=== PATIENT | female | born 1980 | race Caucasian/White ===

== ENCOUNTER 2016-12-02 01:35 | Emergency (ER) | payer OTHER ==
--- NOTE | ~2016-12-02 | CR72 ---
[facility] A Service of [facility] & [facility] / [facility] RADIOLOGY TEXT RESULTS PATIENT: SHIREEN ÁLVAREZ LOCATION: [facility] : 81 UNIT #: [id number] AGE: [address]: Tierra Baez MD SEX: F ORDER DR: [id number] [facility] [address] [place], [place] [address] [id number] E MR#: [id number] Acc #: [id number] NAME: SHIREEN ÁLVAREZ : 1980 SEX: F STUDY DATE/TIME: 12/02/2016 00:45 UNIT: [facility] ROOM: STUDY DESCRIPTION: CR Chest Single View Portable Attending Physician: Tierra Baez M.D. Ordering Physician: Tierra Baez M.D. Primary Care Physician: Sam Lopez M.D. MEDICAL IMAGING REPORT This report is preliminary unless electronic signature is present EXAM Portable chest 12/02/2016 0045 hours INDICATION Weakness and body pain for 2 days after hitting head. Lower extremity edema as well. FINDINGS AP portable chest is compared with 11/11/2016. Again seen are changes of sternotomy and valve repair with pacer placement. There is a persistent small right pleural effusion with some right base atelectasis or scarring. There may be a trace amount of left pleural fluid as well. No pneumothorax. IMPRESSION Postoperative changes of valve repair and pacer placement. There are stable small effusions and there is stable atelectasis or scarring at the right base. Lungs otherwise are clear. There is no pneumothorax. Dictated by... Felix Purdy Jr., M.D. THIS IS AN ELECTRONICALLY VERIFIED REPORT Felix Purdy Jr., M.D. at 12/02/2016 12:39 PM IVY/bruna TD: 12/02/2016 09:37 JOB #: [id number] MEDICAL IMAGING REPORT COPY
--- NOTE | ~2016-12-02 | EKG ---
PATIENT: SHIREEN ÁLVAREZ UNIT #: [id number] Ventricular Rate: 100 BPM Atrial Rate: 100 BPM P-R Interval: 176 ms QRS Duration: 96 ms Q-T Interval: 378 ms QTC Calculation(Bezet): 487 ms P [place]: 78 degrees Calculated R [place]: 58 degrees Calculated T [place]: 41 degrees Diagnosis Line: Atrial-sensed ventricular-paced rhythm Diagnosis Line: Abnormal ECG Diagnosis Line: No previous ECGs available Diagnosis Line: Confirmed by PEGGY CARDONA MD ([id number]) on Diagnosis Line: 12/04/2016 11:57:52 PM INTERPRETING MD: BRENDAN RUDOLPH
[2016-12-02 01:18] LABS: POC - CKMB <1.0 ng/mL (0.0-7.9); POC - TROPONIN <0.05 ng/mL (<=0.05)
[2016-12-02 01:29] LABS: URINE SOURCE CATH
[2016-12-02 01:33] LABS: BASOPHIL% 0.2 % (0-2.5); EOSINOPHIL# 0.3 X10e3 (0-0.7); EOSINOPHIL% 2.7 % (0.0-7.0); HEMATOCRIT 22.9 % (35.0-45.0); HEMOGLOBIN 7.1 gm/dL (12.0-16.0); LYMPHOCYTE# 1.5 X10e3 (1.0-3.5); LYMPHOCYTE% 15.6 % (17.0-45.0); MEAN CELL VOLUME 69.4 FL (83-96); MEAN CORPUSCULAR HEMOGLOBIN 21.6 PG (28-34); MEAN CORPUSCULAR HGB CONC 31.1 g/dL (30-36); MEAN PLATELET VOLUME 7.9 FL (6.5-11.5); MONOCYTE# 1.3 X10e3 (0-1.0); MONOCYTE% 12.7 % (3.0-12.0); NEUTROPHIL# 6.8 X10e3 (1.5-7.1); NEUTROPHIL% 68.8 % (40-75); PLATELET COUNT 224 X10e3 (140-420); RED CELL DISTRIBUTION WIDTH 17.8 % (11.0-15.5); WHITE BLOOD COUNT 9.8 X10e3 (4.0-10.5)
[2016-12-02 01:34] LABS: DIFF IND YES
[2016-12-02 01:35] LABS: URINE APPEARANCE CLOUDY; URINE BILIRUBIN NEG (NEG); URINE BLOOD 1+ (NEG); URINE COLOR YELLOW; URINE GLUCOSE NEG (NEG); URINE KETONE NEG (NEG); URINE LEUKOCYTE ESTERASE 3+ (NEG); URINE NITRATE NEG (NEG); URINE PROTEIN NEG (NEG); URINE SPECIFIC GRAVITY 1.015 (1.003-1.035); URINE UROBILINOGEN 0.2 MG/DL (NEG)
[~2016-12-02 01:35] MED LIST changes: -COUMADIN10 MG PO; -KLONOPIN PO; -ROXICODONE30 M1 PO
[2016-12-02 01:37] LABS: CULTURE INDICATED? YES; URINE BACTERIA AUWI NEG (NEGATIVE); URINE SQUAMOUS EPITHELIAL CELL OCC /[HPF]; UWBCS1 AUWI 100-200 (0-5)
[2016-12-02 01:40] LABS: INR 3.1; PARTIAL THROMBOPLASTIN TIME 42.1 SECONDS (23.5-31.3)
[2016-12-02 01:42] LABS: ALBUMIN SERUM 3.4 g/dL (3.5-5.0); ALKALINE PHOSPHATASE 77 U/L (32-92); ALT (SGPT) 29 U/L (10-40); AST (SGOT) 28 U/L (10-42); BILIRUBIN, DIRECT 0.1 mg/dL (0.0-0.2); BILIRUBIN,INDIRECT 0.4 mg/dL (0.0-0.9); BILIRUBIN,TOTAL 0.5 mg/dL (0.2-2.0); BLOOD UREA NITROGEN 8 mg/dL (9-23); BUN/CREATININE RATIO 11.42; CALCIUM SERUM 8.1 mg/dL (8.4-10.2); CARBON DIOXIDE 33 mmol/L (22-31); CHLORIDE 96 mmol/L (100-111); CPK (CREATINE PHOSPHOKINASE) 60 IU/L (26-140); CREATININE SERUM 0.7 mg/dL (0.6-1.4); GLOM FILT RATE Estimated ABOVE60 mL/min (>60); GLUCOSE FASTING 125 mg/dL (70-110); POTASSIUM 3.1 mmol/L (3.5-5.1); PROTEIN TOTAL SERUM 7.3 g/dL (6.0-8.3); SODIUM 134 mmol/L (135-145)
[2016-12-02 01:45] LABS: BURR CELLS PRESENT; PLATELET ESTIMATE NORMAL (NORMAL); POIKILOCYTOSIS MOD
[2016-12-02 01:46] LABS: HYPOCHROMIA MOD
[2016-12-02 01:50] LABS: URINE CRYSTALS CALCIUM OXALATE /[HPF]
[2016-12-02 01:58] LABS: AMPHETAMINE NEG (NEG); BARBITURATES NEG (NEG); BENZODIAZEPINES POS (NEG); COCAINE NEG (NEG); MARIJUANA POS (NEG); OPIATES POS (NEG); TRICYCLIC ANTIDEPRESSANTS NEG (NEG); U METHADONE NEG (NEG)
== END 2016-12-02 01:58 | disposition left against medical advice (07) ==
LOC: CED 01:35
PROVIDERS: Emergency Medicine
DX: L03.116 Cellulitis of left lower limb (principal); L03.115 Cellulitis of right lower limb; F19.10 Other psychoactive substance abuse, uncomplicated; I11.0 Hypertensive heart disease with heart failure; I50.9 Heart failure, unspecified; E11.9 Type 2 diabetes mellitus without complications; F41.9 Anxiety disorder, unspecified; Z98.890 Other specified postprocedural states; F17.200 Nicotine dependence, unspecified, uncomplicated; Z88.5 Allergy status to narcotic agent; Z88.8 Allergy status to other drugs, medicaments and biological substances
CPT/HCPCS: 36415; 71010; 80048; 80076; 80307; 81003; 82550; 82553; 83605; 83880; 84484; 84703; 85025; 85610; 85730; 87040; 87086; 93005; 96365; 96375; 99284; J2543; J3370

== ENCOUNTER → 2016-12-02 | Outpatient (CLI) | payer OTHER ==
[~2016-12-02] MED LIST: ACETAMINOPHEN PO; ALBUTEROL17 GM INH; AMBIEN PO; AUGMENTIN875 MG PO; CLEOCIN HCL300 M1 PO; COUMADIN10 MG PO; DIAZEPAM PO; FAST RELIEF LAX10 MG PR; FLEXERIL10 M1 PO; FLEXERIL10 MG PO; GLUCOPHAGE500 M1 PO; HUMALOG100 U/M2 SUBQ; KLONOPIN PO; KLONOPIN1 M1 PO; LASIX20 MG PO; LEVAQUIN750 M1 PO; LEVEMIR FL100 UNIT/1 SUBQ; LEVEMIR SUBQ; LEVEMIR100 UNITS/ SUBQ; LORTAB 7.5-5001 TAB PO; METFORMIN HCL1000 M1 PO; METHADOSE PO; MOBIC PO; NAPROXEN PO; NICOTINE PATCH1 EACH TD; NICOTINE TRANSD21 MG EXT; NO MEDICATIONS; NORCO 7.5-3251 EACH PO; NOVOLOG100 U/ML SUBQ; OXYIR5 MG PO; PAXIL PO; PHENERGAN25 M1 PO; POTASSIUM CHLO20 ME1 PO; ROXICODONE30 M1 PO; SUBUTEX2 MG; TRADJENTA5 MG PO; VISTARIL PO; VOLTAREN75 MG PO
--- NOTE | ~2016-12-02 | CR63 ---
[facility] A Service of [facility] & [facility] RADIOLOGY TEXT RESULTS PATIENT: SHIREEN ÁLVAREZ LOCATION: [facility] : 81 UNIT #: [id number] AGE: [address]: Sam Lopez MD SEX: F ORDER DR: [id number] [facility] [address] [place], [place] [address] [id number] O MR#: [id number] Acc #: [id number] NAME: SHIREEN ÁLVAREZ : 1980 SEX: F STUDY DATE/TIME: 12/02/2016 17:54 UNIT: [facility] ROOM: STUDY DESCRIPTION: CR Chest 2 View Attending Physician: Sam Lopez M.D. Referring Physician: Sam Lopez M.D. Ordering Physician: Sam Lopez M.D. Primary Care Physician: Sam Lopez M.D. MEDICAL IMAGING REPORT This report is preliminary unless electronic signature is present EXAM Chest, PA and lateral, 12/02/2016. HISTORY Cough and shortness of breath since August 2016, right pleural effusion, congestive heart failure and diabetes. Smoking history for 14 years. FINDINGS The cardiac and mediastinal structures are stable compared with 12/02/2016 at 12:45 a.m. status post median sternotomy. Cardiac pacemaker is unchanged. Small right pleural effusion with atelectatic changes at the lung bases. No pneumothorax. IMPRESSION No interval change compared with the previous chest radiograph performed earlier today at 12:45 a.m. Dictated by... Dm Curtis M.D. THIS IS AN ELECTRONICALLY VERIFIED REPORT Dm Curtis M.D. at 12/03/2016 3:26 PM KRT/leah TD: 12/03/2016 13:47 JOB #: [id number] MEDICAL IMAGING REPORT COPY
== END | disposition home or self-care (01) ==
LOC: CRAD 17:21
DX: R09.89 Other specified symptoms and signs involving the circulatory and respiratory systems (principal)
CPT/HCPCS: 71020

== ENCOUNTER 2016-12-05 18:31 | Emergency (ER) | payer OTHER ==
--- NOTE | ~2016-12-05 | CR72 ---
[facility] A Service of [facility] & [facility] RADIOLOGY TEXT RESULTS PATIENT: SHIREEN ÁLVAREZ LOCATION: [facility] : 81 UNIT #: [id number] AGE: [address]: Markus Lorenzo MD SEX: F ORDER DR: [id number] [facility] [address] [place], [place] [address] [id number] E MR#: [id number] Acc #: [id number] NAME: SHIREEN ÁLVAREZ : 1980 SEX: F STUDY DATE/TIME: 12/05/2016 18:59 UNIT: [facility] ROOM: STUDY DESCRIPTION: CR Chest Single View Portable Attending Physician: Markus Lorenzo M.D. Ordering Physician: Chucky Calloway M.D. Primary Care Physician: Sam Lopez M.D. MEDICAL IMAGING REPORT This report is preliminary unless electronic signature is present EXAM Portable chest HISTORY Shortness of air, weakness, low hemoglobin. COMPARISON 12/02/2016. FINDINGS Portable view of the chest demonstrates low lung volumes. Mild pulmonary vascular congestion. Continued right-sided volume loss with elevation of the right hemidiaphragm and a small amount of right basilar atelectasis or infiltrate. Heart size within normal limits. Mediastinum unremarkable. Pacemaker noted. No visible pneumothorax. Dictated by... Rhona Dent M.D. THIS IS AN ELECTRONICALLY VERIFIED REPORT Rhona Dent M.D. at 12/06/2016 6:31 PM BASILIA/bruna TD: 12/06/2016 09:11 JOB #: [id number] MEDICAL IMAGING REPORT COPY
[2016-12-05 17:30] LABS: BASOPHIL# 0.1 X10e3 (0-0.3); BASOPHIL% 0.7 % (0-2.5); EOSINOPHIL# 0.3 X10e3 (0-0.7); HEMATOCRIT 26.4 % (35.0-45.0); LYMPHOCYTE# 2.4 X10e3 (1.0-3.5); LYMPHOCYTE% 27.3 % (17.0-45.0); MEAN CELL VOLUME 69.4 FL (83-96); MEAN CORPUSCULAR HEMOGLOBIN 21.1 PG (28-34); MEAN CORPUSCULAR HGB CONC 30.4 g/dL (30-36); MEAN PLATELET VOLUME 7.9 FL (6.5-11.5); MONOCYTE# 0.8 X10e3 (0-1.0); MONOCYTE% 9.3 % (3.0-12.0); NEUTROPHIL# 5.2 X10e3 (1.5-7.1); NEUTROPHIL% 59.7 % (40-75); PLATELET COUNT 306 X10e3 (140-420); RED CELL DISTRIBUTION WIDTH 17.7 % (11.0-15.5); WHITE BLOOD COUNT 8.7 X10e3 (4.0-10.5)
[2016-12-05 17:31] LABS: DIFF IND NO
[2016-12-05 17:47] LABS: INR 1.4; PARTIAL THROMBOPLASTIN TIME 28.8 SECONDS (23.5-31.3)
[2016-12-05 17:49] LABS: PROTHROMBIN TIME (PATIENT) 15.2 SECONDS (9.6-11.5)
[2016-12-05 18:01] LABS: BLOOD UREA NITROGEN 14 mg/dL (9-23); CALCIUM SERUM 8.9 mg/dL (8.4-10.2); CARBON DIOXIDE 30 mmol/L (22-31); CHLORIDE 100 mmol/L (100-111); CREATININE SERUM 0.8 mg/dL (0.6-1.4); GLOM FILT RATE Estimated ABOVE60 mL/min (>60); GLUCOSE FASTING 163 mg/dL (70-110); POTASSIUM 4.2 mmol/L (3.5-5.1); SODIUM 137 mmol/L (135-145)
[2016-12-05 19:05] LABS: AMPHETAMINE NEG (NEG); BARBITURATES NEG (NEG); BENZODIAZEPINES POS (NEG); COCAINE NEG (NEG); MARIJUANA NEG (NEG); OPIATES POS (NEG); TRICYCLIC ANTIDEPRESSANTS NEG (NEG); U METHADONE NEG (NEG)
== END 2016-12-05 20:50 | disposition home or self-care (01) ==
LOC: CED 18:31
PROVIDERS: Emergency Medicine
DX: D64.9 Anemia, unspecified (principal); R79.1 Abnormal coagulation profile; F19.10 Other psychoactive substance abuse, uncomplicated; R05 Cough; I10 Essential (primary) hypertension; E11.9 Type 2 diabetes mellitus without complications; Z79.01 Long term (current) use of anticoagulants; Z88.5 Allergy status to narcotic agent; Z91.013 Allergy to seafood; F17.210 Nicotine dependence, cigarettes, uncomplicated
CPT/HCPCS: 36415; 71010; 80048; 80307; 84703; 85025; 85610; 85730; 86850; 86900; 86901; 99283

== ENCOUNTER 2017-02-18 11:05 | Inpatient (IN) | payer OTHER ==
--- NOTE | ~2017-02-18 | HP ---
Unit #: [id number] #: [id number] Patient: SHIREEN ÁLVAREZ [id number] [address] [place], [place] [address] [id number] I MR#: [id number] NAME: SHIREEN ÁLVAREZ ROOM: [facility] Age: 36 Sex: F Admission Date: 02/18/2017 : 1980 Attending Physician: Alex Magana M.D. Primary Care Physician: Sam Lopez M.D. HISTORY AND PHYSICAL HISTORY OF PRESENT ILLNESS A 36-year-old white female, history of IV drug use, tricuspid valve vegetation, which was removed. Had months of antibiotics. Developed a right pleural effusion secondary to the tricuspid valve insufficiency. Eventually underwent tricuspid valve replacement with, what sounds like, a mechanical valve. Was placed on Coumadin, developed some sort of bekah dysrhythmia, ended up with a pacemaker. I do not have those records, since she was down at [facility] at that time, which occurred about 3 months ago. She now presents to the emergency room with weakness, near syncope, diarrhea, nausea, vomiting, urinary frequency. Found to be septic with thrombocytopenia, urinary tract infection, hyponatremia. Random blood sugar was 167. PT-INR was subtherapeutic. White count was 12.6, sodium 125, lactic acid 5.7, and the patient is admitted for further evaluation and therapy. ALLERGIES Iodine, sulfa drugs and morphine. MEDS PRIOR TO ADMISSION 1. Levemir 12 units subcu q.h.s. 2. Coumadin 10 mg daily. 3. Klonopin 0.5 mg q.8 hours. 4. Roxicodone 10 mg q.6 hours. PAST SURGICAL HISTORY 1. Right lower extremity fracture. 2. Right wrist fracture. 3. Tricuspid valve replacement. 4. VATS on the right. 5. Pacemaker November of 2016. PAST MEDICAL HISTORY 1. Diabetes mellitus, type unknown. 2. History of hypertension. 3. Tobacco use. 4. IV drug use. 5. Tricuspid valve regurgitation. 6. Right pleural effusion. SOCIAL HISTORY She is not . Smokes one pack of cigarettes daily. Denies alcohol or current drug use. Lives alone. FAMILY HISTORY Unit #: [id number] #: [id number] Patient: SHIREEN ÁLVAREZ Family history is noncontributory. PHYSICAL EXAMINATION GENERAL: She is awake, alert, oriented x3, and in no acute distress. ADMISSION VITALS: Temperature 100.4, pulse 124, respirations 32, blood pressure 133/84, although it was 84/52 when she arrived, O2 sats 100% on 2 liters. HEENT: Unremarkable, except for multiple facial infections; i.e., small abscesses. NECK: Neck was supple without JVD, bruits, adenopathy or thyromegaly. CHEST: Clear to auscultation. CARDIOVASCULAR: Heart has a regular rate and rhythm without any murmurs, rubs or gallops. ABDOMEN: Abdomen was soft, nondistended, nontender with positive bowel sounds and no hepatosplenomegaly. EXTREMITIES: Extremities showed no clubbing, cyanosis or edema. /RECTAL: Deferred. NEUROLOGIC: Exam is grossly intact. DIAGNOSTIC STUDIES LABORATORY VALUES: Random blood sugar 167. Urinalysis - 2+ leukocytes, positive for nitrites, 3+ protein, positive for bile, 3+ blood, 10-25 RBCs, 100-200 WBCs, 2+ bacteria. INR 1.3, PTT 33.3. White count 12.6, hemoglobin 10, platelets 35,000. Sodium 125, CO2 17, blood sugar 158, GFR 48, AST 53, ALT 67, lipase normal. Urine drug screen positive for benzodiazepines, marijuana and opiates. Lactic acid 5.7. IMAGING: Chest x-ray - No report. CARDIOVASCULAR: EKG - Sinus tachycardia, 140 beats per minute. Left atrial enlargement. IMPRESSION 1. Sepsis. 2. Urinary tract infection. 3. Hyponatremia. 4. Thrombocytopenia. 5. Subtherapeutic ProTime. 6. Status post tricuspid valve replacement. 7. Permanent pacemaker. 8. History of right pleural effusion status post VATS. 9. History of IV drug use. 10. Tobacco use. 11. Diabetes mellitus, type unknown, on insulin. 12. Nausea, vomiting and diarrhea. 13. Renal insufficiency. PLAN Sepsis protocol. Serum osmolality. Urine osmolality and sodium. IV antibiotics with gentamicin, rifampin and vancomycin per pharmacy's recommendation for coverage for bacterial endocarditis, as well as the urinary tract infection. Urine and blood cultures have been sent. Hematology is to see for the thrombocytopenia. Dr. Dolan to see from energy conservation engineer standpoint. She will be placed on low-dose sliding scale insulin, clear liquids, Accu-Cheks a.c. and h.s., full dose Lovenox for now unless hematology feels otherwise. Further evaluation pending results of above. Unit #: [id number] #: [id number] Patient: SHIREEN ÁLVAREZ Dictated by Jewel Gonzalez/maria isabel TD: 02/18/2017 15:36 JOB #: [id number] HISTORY AND PHYSICAL Page 1 of 1 X Alex Magana MD X HISTORY AND PHYSICAL
--- NOTE | ~2017-02-18 | CO ---
Unit #: [id number] #: [id number] Patient: SHIREEN ÁLVAREZ [id number] [address] [address] [id number] I MR#: [id number] NAME: SHIREEN ÁLVAREZ ROOM: [facility] Age: 36 Sex: F Admission Date: 02/18/2017 : 1980 Attending Physician: Alex Magana M.D. Primary Care Physician: Sam Lopez M.D. CONSULTATION REPORT REASON FOR CONSULTATION Critical care management. CHIEF COMPLAINT Low blood pressure. HISTORY OF PRESENT ILLNESS A 36-year-old female with past medical history of IV drug use, tricuspid valve vegetation removed, and history of right-sided pleural effusion. Has a pacemaker. Presented to the emergency room with complaint of near syncope, nausea, vomiting, diarrhea and urinary frequency. Found to be in septic shock with thrombocytopenia, urinary tract infection, hyponatremia, and white count is 12, sodium is 125. I am seeing the patient at bedside. REVIEW OF SYSTEMS Unobtainable. ALLERGIES Iodine, sulfa drugs, morphine. MEDICATIONS Levemir, Coumadin, Klonopin, Roxicodone. SURGICAL HISTORY Right lower extremity fracture, right wrist fracture, tricuspid valve replacement, VATS, pacemaker placement. PAST MEDICAL HISTORY Diabetes, hypertension, tobacco use, IV drug use, tricuspid valve regurgitation, right pleural effusion. SOCIAL HISTORY Smokes 1 pack per day. Denies alcohol. Current drug use. PHYSICAL EXAMINATION VITAL SIGNS: Currently temperature is 99, pulse 125, blood pressure is 95/60, oxygen saturation 99%. NEUROLOGIC: Awake, alert and oriented x3. No neuro deficits. HEENT: PERRLA. EOMI. NECK: Supple. No JVD. CHEST: Bilateral air entry. Bilateral mild rhonchi. GI: Nontender. Soft. Bowel sounds positive. EXTREMITIES: No edema. SKIN: No rashes, no ulcer. Unit #: [id number] #: [id number] Patient: SHIREEN ÁLAVREZ LYMPHATIC: No lymphadenopathy. DIAGNOSTIC STUDIES IMAGING: Chest x-ray has been reviewed. LABS: Blood gases - pH of 7.48, pCO2 24, pO2 72. Creatinine is 1.4, lactic acid 5.7. INR is 1.3. White count 12, hemoglobin 10, hematocrit 32, platelet count 35. ASSESSMENT 1. Septic shock. 2. Thrombocytopenia. 3. Urinary tract infection. 4. Hyponatremia. 5. History of IV drug use. 6. Possible (1) . PLAN Plan is to continue the patient on broad-spectrum IV antibiotics. Recommend infectious disease consultation. Aggressive IV hydration. Stress dose steroids. Continue IV fluids. Noncontrast CT of the chest, abdomen and pelvis. Hematology consultation. Patient will be closely monitored. Please see orders for detailed plan. Thank you very much for this consultation. Dictated by... Rick Dolan M.D. KELIN/maria isabel TD: 02/19/2017 07:36 JOB #: [id number] CONSULTATION REPORT Page 1 of 1 X Rick Dolan MD CONSULTATION REPORT
--- NOTE | ~2017-02-18 | CT4 ---
[facility] A Service of [facility] & [facility] RADIOLOGY TEXT RESULTS PATIENT: SHIREEN ÁLVAREZ LOCATION: [facility] 570-01 : [birth year] UNIT #: [id number] AGE: [address]: Hannah Naidu MD SEX: F ORDER DR: [id number] [facility] [address] [place], [place] [address] [id number] I MR#: [id number] Acc #: [id number] NAME: SHIREEN ÁLVAREZ : 1980 SEX: F STUDY DATE/TIME: 02/23/2017 10:24 UNIT: [id number] ROOM: [facility] STUDY DESCRIPTION: CT Abd and Pelv Wo Cont Attending Physician: Hannah Naidu M.D. Ordering Physician: Kalin Balbuena M.D. Primary Care Physician: Sam Lopez M.D. MEDICAL IMAGING REPORT This report is preliminary unless electronic signature is present EXAM CT of the abdomen and pelvis without contrast. INDICATIONS Right upper quadrant pain for [address] images were obtained from the dome of the diaphragm through the symphysis pubis. No oral or intravenous contrast material was administered. This CT exam was performed with one or more of the following radiation dose reduction techniques: automatic exposure control, adjustment of mA and/or kV according to patient size, and iterative reconstruction. FINDINGS The patient's CT of the chest has been dictated separately. I do think the patient has a cirrhotic morphology to the liver. Certainly the spleen is enlarged measuring up to 18.1 cm, and the patient is noted to have a small volume of ascites. Stomach and proximal small bowel are within normal limits as are the adrenal glands. There is some peripancreatic stranding but I think this is probably just mesenteric edema. Certainly, however, correlation with amylase and lipase is suggested given history of right upper quadrant pain. Gallbladder is decompressed. Nonobstructing stone is seen within the left kidney. Shotty retroperitoneal lymph nodes are seen. This patient has a Perez catheter, the tip of it is probably located within the bladder, but potentially the balloon of the catheter may be located at least partially within the urethra. There is no evidence of mechanical bowel obstruction. Patient has extensive body wall edema. Subcutaneous gas seen within the anterior abdominal wall is likely related to medication injection. IMPRESSION 1. I do think this patient has a cirrhotic morphology to the liver with STS. [facility] A Service of [facility] RADIOLOGY TEXT RESULTS PATIENT: SHIREEN ÁLVAREZ LOCATION: [facility] 570-01 : [birth year] UNIT #: [id number] AGE: [address]: Hannah Naidu MD SEX: F ORDER DR: evidence of portal hypertension including splenomegaly and ascites. Correlation with patient's liver function test is suggested. 2. There is stranding seen around the patient's pancreas. This may simply be related to some mesenteric edema, but again correlation with amylase and lipase is recommended. 3. This patient has a Perez catheter with at least the tip located within the bladder. However, I do think the balloon extends at least partially into the patient's urethra. 4. Diffuse mild mesenteric and retroperitoneal adenopathy of uncertain clinical significance. It is a new finding when compared to the February of 2016 exam. It is favored to be reactive, however, I would suggest short-term CT followup to document resolution. 5. Also noted, but not mentioned in the report is hepatomegaly. 6. Nonobstructing stone identified within the left kidney. 7. Please see the separately dictated report for findings within the thorax. Dictated by... Sanjana Cordero M.D. THIS IS AN ELECTRONICALLY VERIFIED REPORT Sanjana Cordero M.D. at 02/25/2017 12:42 PM AFF/jt TD: 02/23/2017 16:42 JOB #: [id number] MEDICAL IMAGING REPORT Page 1 of 1 COPY
--- NOTE | ~2017-02-18 | CO ---
Unit #: [id number] #: [id number] Patient: SHIREEN SUH [id number] [address] [place], [place] [address] [id number] I MR#: [id number] NAME: SHIREEN SUH ROOM: [facility] Age: 36 Sex: F Admission Date: 02/18/2017 : 1980 Attending Physician: Hannah Naidu M.D. Primary Care Physician: Sam Lopez M.D. CONSULTATION REPORT REASON FOR CONSULTATION Thrombocytopenia. HISTORY OF PRESENT ILLNESS Ms. Suh is a very pleasant 36-year-old lady with multiple medical problems including history of tricuspid valve endocarditis for which the patient was admitted to [facility]. She had a prolonged hospitalization. She has history of IV drug abuse, which was complicated by endocarditis. She received a prolonged course of antibiotics. Her course was also complicated by pleural effusion, which required drainage. The patient is now mechanical valve because of which she is anticoagulated with Coumadin. The patient now presented with weakness, syncope, diarrhea, nausea, vomiting, and urinary frequency. She was felt to be septic with thrombocytopenia. The source was thought to be urinary tract infection. She was also hyponatremic. She was subtherapeutic on her PT/INR. The patient has been now admitted to ICU, where she is being treated with antibiotics. She was also found to be thrombocytopenic because of which she has been given platelet transfusion because of the risk of bleeding. She is currently on Arixtra because of a subtherapeutic INR of Coumadin. ALLERGIES Include iodine, sulfa drugs, morphine. MEDICATIONS At home; Levemir, Coumadin, Klonopin, Roxicodone. PAST SURGICAL HISTORY Right lower extremity fracture, right wrist fracture, tricuspid valve replacement, VATS procedure on the right, pacemaker placement in 11/2016. PAST MEDICAL HISTORY Diabetes, hypertension, tobacco abuse, IV drug abuse, tricuspid valve regurgitation, endocarditis, right-sided pleural effusion. SOCIAL HISTORY The patient is not . Smokes 1 pack of cigarettes daily. Now denies any alcohol or current IV drug abuse. She lives with her daughter. FAMILY HISTORY Not pertinent. PHYSICAL EXAMINATION Negative. Unit #: [id number] #: [id number] Patient: SHIREEN SUH LABORATORY DATA White count 12.6, hemoglobin 10, platelet count 19,000. ASSESSMENT AND PLAN Ms. Suh is a very pleasant lady with complicated past medical history. Currently, she has again septic. The source is felt to be urinary tract infection, but there is a concern for bacteremia and endocarditis. She has been started on broad-spectrum antibiotics with vancomycin, gentamicin, and rifampin. Infectious Disease has been consulted and there is concern for bacteremia with gram-positive cocci. She is going to have further evaluation with echocardiogram as well. She is currently maintained on Arixtra because of the subtherapeutic INR. She has multiple risk factors for bleeding, because of which we have recommended to transfuse 1 unit of platelets and then our plan is to maintain her platelet count above 20,000 to minimize the risk of bleeding. We are also going to give her intravenous iron for iron deficiency anemia. Dictated by... Keli Acosta M.D., Ph.D. RONDA/claudio TD: 02/19/2017 23:00 JOB #: [id number] CONSULTATION REPORT Page 1 of 1 X X CONSULTATION REPORT
--- NOTE | ~2017-02-18 | CR72 ---
[facility] A Service of [facility] & [facility] RADIOLOGY TEXT RESULTS PATIENT: SHIREEN ÁLVAREZ LOCATION: [facility] 570- : [birth year] UNIT #: [id number] AGE: [address]: Hannah Naidu MD SEX: F ORDER DR: [id number] [facility] [address] [place], [place] [address] [id number] I MR#: [id number] Acc #: [id number] NAME: SHIREEN ÁLVAREZ : 1980 SEX: F STUDY DATE/TIME: 02/24/2017 5:10 UNIT: [facility] ROOM: [facility] STUDY DESCRIPTION: CR Chest Single View Portable Attending Physician: Hannah Naidu M.D. Ordering Physician: Rick Dolan M.D. Primary Care Physician: Sam Lopez M.D. MEDICAL IMAGING REPORT This report is preliminary unless electronic signature is present EXAM Portable chest INDICATION Respiratory failure followup. PROCEDURE Frontal view chest. COMPARISON 02/23/2017 FINDINGS Heart size unchanged. Patchy opacities are stable. No new dense consolidation. IMPRESSION Stable. Dictated by... Robby Stoner M.D. THIS IS AN ELECTRONICALLY VERIFIED REPORT Robby Stoner M.D. at 02/27/2017 7:21 AM DIEGO/chris TD: 02/24/2017 10:15 JOB #: [id number] MEDICAL IMAGING REPORT Page 1 of 1 COPY
--- NOTE | ~2017-02-18 | EKG ---
PATIENT: SHIREEN ÁLVAREZ UNIT #: [id number] Ventricular Rate: 140 BPM Atrial Rate: 140 BPM P-R Interval: 118 ms QRS Duration: 84 ms Q-T Interval: 296 ms QTC Calculation(Bezet): 451 ms P [place]: 76 degrees Calculated R [place]: 72 degrees Calculated T [place]: 44 degrees Diagnosis Line: Sinus tachycardia Diagnosis Line: Left atrial enlargement Diagnosis Line: Borderline ECG Diagnosis Line: When compared with ECG of 02-DEC-2016 00:47, Diagnosis Line: Sinus rhythm has replaced Electronic ventricular Diagnosis Line: pacemaker Diagnosis Line: Confirmed by PEGGY CARDONA MD ([id number]) on Diagnosis Line: 02/20/2017 9:37:48 PM INTERPRETING MD: BRENDAN RUDOLPH
--- NOTE | ~2017-02-18 | US140 ---
[facility] A Service of [facility] & [facility] / [facility] RADIOLOGY TEXT RESULTS PATIENT: SHIREEN ÁLVAREZ LOCATION: [facility] 570-01 : [birth year] UNIT #: [id number] AGE: [address]: Hannah Naidu MD SEX: F ORDER DR: [id number] [facility] [address] [place], [place] [address] [id number] I MR#: [id number] Acc #: [id number] NAME: SHIREEN ÁLVAREZ : 1980 SEX: F STUDY DATE/TIME: 03/08/2017 20:12 UNIT: [facility] ROOM: [facility] STUDY DESCRIPTION: US UE Veins Unilat or Ltd Stdy Attending Physician: Hannah Naidu M.D. Ordering Physician: Hannah Naidu M.D. Primary Care Physician: Sam Lopez M.D. MEDICAL IMAGING REPORT This report is preliminary unless electronic signature is present EXAM Right upper extremity swelling. PICC insertion 5 days ago. COMPARISON None available. FINDINGS No deep vein thrombus identified in the right upper extremity. The right internal jugular vein, subclavian vein, axillary vein and brachial veins are patent. The cephalic vein is not compressible indicative of a superficial vein thrombosis. This is in the mid humerus. The cephalic vein is compressible at the antecubital fossa. IMPRESSION 1. Superficial venous thrombus in the right cephalic vein in the distal aspect of the upper arm. 2. No evidence of a deep vein thrombosis. Dictated by... Max Balderrama M.D. THIS IS AN ELECTRONICALLY VERIFIED REPORT Max Balderrama M.D. at 03/09/2017 1:17 PM EDWARD/cecilio TD: 03/08/2017 21:40 JOB #: [id number] MEDICAL IMAGING REPORT Page 1 of 1 COPY
--- NOTE | ~2017-02-18 | FU ---
[facility] Nutrition Therapy DATE: 03/02/17 Patient: SHIREEN ÁLVAREZ Physician: LEESA Address: [address] Room/Bed: [address] [place] [address], Zip: [place] [address] Admit Date: 02/18/17 Date of : [birth year] Height: 5 5 Weight: 177 80.6 NUTRITION MONITORING/FOLLOW-UP: Reason: PT SEEN FOR FOLLOW-UP DX: SYNCOPAL EPISODE, SEPSIS Anthropometrics: 5'5", WT: 177# (80 KG), BMI: 29.5 -ADMIT WEIGHT: 184# Labs: GLU: 115, NA+:131, ALB: 1.8, CA+:7.8 Meds: FUROSEMIDE, LEVEMIR, NOVOLOG, PHENERGAN, NACL I&O's: 4405/5551, 1 BM NOTED Skin: PREVIOUSLY NOTED Assessment: CHART REVIEWED AND EVENTS NOTED. PT SEEN FOR FOLLOW-UP. PT REPORTS GOOD PO INTAKE AND APPETITE, REPORTS OCCATIONAL NAUSEA AT TIMES. PT ADDS "I LOVE THE FOOD HERE". THIS RD ENCOURAGED HEALTHY CHOICES ON [facility] MENU, PT AGREED AND DEMONSTRATED UNDERSTANDING. PT ALSO WILLING TO DRINK GLUCERNA SHAKE W/DINNER MEAL DAILY. PT REPORTED NO DIET QUESTIONS AT THIS TIME. RD TO REMAIN AVAILABLE. Dx: IMPAIRED GLYCEMIC CONTROL R/T PMH AEB ELEVATED BLOOD SUGARS NOTED.-ACTIVE NEW DX: ALTERED NUTRIENT UTILIZATION R/T PMH AEB NEED FOR THERAPEUTIC DIET ORDER. Intervention: 1. HEALTHY HEART DIET 2. DIET EDUCATION Monitoring, Evaluation and Goals: 1. ORAL INTAKE; CONSUME >50% OF MEALS-ACTIVE/MET 2. WEIGHTS; PROMOTE GRADUAL WEIGHT LOSS-ACTIVE/IN PROGRESS 3. LABS; WNL-IN PROGRESS 4. SKIN; PROMOTE SKIN HEALING-IN PROGRESS MONITOR: -PO INTAKE/APPETITE -WEIGHTS -SUPPLEMENT INTAKE Recommendations: 1. RECOMMEND TO ADD CC TO CURRENT DIET ORDER ABOVE 2' PMH, ELEVATED BMI NOTED [facility] Nutrition Therapy DATE: 03/02/17 Patient: SHIREEN ÁLVAREZ Physician: LEESA Address: [address] Room/Bed: [address] [place] [address], Zip: [place] [address] Admit Date: 02/18/17 Date of : 81 Height: 5 5 Weight: 177 80.6 2. PLEASE ORDER GLUCERNA SHAKE DAILY W/DINNER MEAL 3. PLEASE OBTAIN UPDATED A1c TO BETTER ASSESS DM MANAGEMENT + UPDATED PHOS LEVEL RD WILL F/U PER PROTOCOL PT IS MILDLY COMPROMISED Respectfully, FELIPA CODY MS, RD, LD Food and Nutritional Services [facility] cc: client file
--- NOTE | ~2017-02-18 | DS ---
Unit #: [id number] #: [id number] Patient: BRADLEY GRAY [id number] [address] [address] [id number] I MR#: [id number] NAME: BRADLEY GRAY ROOM: 231 Age: 36 Sex: F Admission Date: 02/18/2017 : 1980 Discharge Date: 03/15/2017 Attending Physician: Hannah Naidu M.D. Primary Care Physician: Sam Lopez M.D. DISCHARGE SUMMARY REVISED/ADDENDED REPORT DISPOSITION [facility]. CONSULTATIONS DURING HOSPITALIZATION 1. Dr. Rick Dolan from pulmonary services. 2. Dr. Acosta from hematology services. 3. Dr. Kalin Balbuena from infectious disease services. 4. Dr. Mercer from cardiology services. FINAL DIAGNOSES 1. Methicillin sensitive Staphylococcus aureus sepsis. 2. Tricuspid valve endocarditis, recurrent. 3. History of tricuspid valve repair in November 2016 at [facility]. 4. Aortic root abscess. 5. Right ventricular failure. 6. Diabetes mellitus type 2. 7. Complete heart block, status post [employer] permanent pacemaker in October 2016 at [facility]. 8. Chronic diastolic heart failure. 9. Hypertension. 10. Chronic anemia. 11. Chronic thrombocytopenia. 12. Chronic obstructive pulmonary disease. 13. Intravenous drug abuse. 14. Chronic anticoagulation therapy. DISCHARGE MEDICATIONS 1. Nafcillin 2 g IV q.4 until 04/01/17. 2. Rifampin 300 mg p.o. b.i.d. until 04/01/17. 3. On 04/02/17, begin Keflex 500 mg t.i.d. for lifelong. 4. Tylenol 650 q.6 p.r.n. 5. KlonoPIN 0.5 mg q.8 hourly. 6. Furosemide 60 mg twice a day. 7. Levemir 15 units subcu. every day. 8. Niferex 150 mg twice a day. 9. Oxycodone 10 mg q.6 p.r.n. 10. Potassium 40 mEq p.o. every day. 11. Patient is on chronic anticoagulation therapy. She was on Arixtra in the hospital. We are going to discuss with cardiology for further decision. DIAGNOSTIC STUDIES Unit #: [id number] #: [id number] Patient: BRADLEY GRAY LABORATORY: Workup on discharge: Sodium 135, potassium 4.3, chloride 106, BUN 14, creatinine 0.9, calcium 8.1, lactic acid 1.3. CBC shows WBC 6.4, hemoglobin 10.2, hematocrit 22.5, and platelet count of 128. Glucose 173. BNP on 03/05/2017 shows 217. SIGNIFICANT RADIOLOGICAL STUDIES: Patient has had multiple imaging studies during hospitalization. On February 23, she had a CT chest that showed decreased size in right pleural effusion, status post valve repair, and consolidation right lower lobe and lingula. CT scan of the abdomen and pelvis was also done on 02/23, which shows cirrhotic morphology of the liver with portal hypertension including splenomegaly and ascites. Diffuse mild mesenteric and retroperitoneal adenopathy of uncertain clinical significance. Patient may need short-term CT followup to document resolution. Ultrasound of upper extremity show superficial venous thrombus in the right cephalic vein in the distal aspect of the upper arm. No evidence of DVT. HOSPITAL COURSE Ms. Bradley Gray is a 36-year-old female who has had multiple medical problems. Was admitted to [facility] on February 18, 2017. Patient is very well known to us from multiple admissions. Patient has had MRSA endocarditis. She had tricuspid valve revision done on December 19 at [facility]. She continued with IV drug abuse. Patient was admitted with fever and diagnosed with recurrent tricuspid endocarditis. Patient has had a very lengthy stay during hospitalization. She continued to have persistent fever until 24 hours ago. Her T max 24 hours ago was 99. Patient's leukocytosis has improved. Patient was evaluated by cardiology, pulmonary, and infectious disease. Patient does have aortic root abscess. Patient is not a surgical candidate as per cardiology. Patient will need long-term antibiotics. She will be on nafcillin and rifampin until 04/01/17 and after that she will be on Keflex for lifelong. Drug cessation counseling has been done at length. Patient does have history of right ventricular failure. Patient received IV diuretics beginning of the hospital stay and that has been changed to p.o. Patient continued to have hypokalemia during hospitalization. That was replaced. Patient will be discharged to [facility] for ongoing treatment. VITAL SIGNS ON DISCHARGE Blood pressure is 122/74, respiratory rate 18, pulse is 101, temperature 98.6, and oxygen saturation is 95%. DISCHARGE INSTRUCTIONS 1. Continue nafcillin 2 g IV q.4 hourly until 04/01/17. 2. Continue rifampin 300 mg p.o. q.12 through 04/01/16. 3. Weekly CMP and CBC while on antibiotic. 4. On 04/02/17, begin Keflex 500 mg p.o. t.i.d. for life. 5. Patient has PICC line and accepting facility accepts responsibility of PICC line in IV drug abuse patient. This PICC line needs to be discontinued with the last dose of IV antibiotic, which will be on 04/01/17. 6. Patient will have 1 unit of packed RBC transfusion before discharge. 7. Anticoagulation therapy will be decided per cardiology. Patient is on chronic anticoagulation therapy. Patient is on Arixtra at this time. Plan of care has been discussed with patient at length. She does Unit #: [id number] #: [id number] Patient: BRADLEY GRAY verbalize understanding. Dictated by... Jewel Thornton TD: 03/10/2017 09:58 JOB #: [id number] ADDENDUM Please note, patient was supposed to be discharged on 03/10/2017 but there was no bed availability in [facility], that is why patient continued to stay here and discharge was held. This addendum to the discharge summary dictated earlier. Please note, there have been the following changes in the medications: 1. Nafcillin has been discontinued. 2. Patient has been started on Kefzol 2 grams IV q.8 h. stop on 04/01/2017. 3. Rifampin 300 mg p.o. q.12 h. stop on 04/01/2017. 4. Weekly CMP and CBC while on antibiotic . Dictated by... Jewel Thornton TD: 03/15/2017 20:33 JOB #: [id number] DISCHARGE SUMMARY Page 1 of 1 X Hannah Naidu MD X DISCHARGE SUMMARY
--- NOTE | ~2017-02-18 | CO ---
Unit #: [id number] #: [id number] Patient: SHIREEN ÁLVAREZ [id number] [address] [address] [id number] I MR#: [id number] NAME: SHIREEN ÁLVAREZ ROOM: [facility] Age: 36 Sex: F Admission Date: 02/18/2017 : 1980 Attending Physician: Hannah Naidu M.D. Primary Care Physician: Sam Lopez M.D. Consultation Date: 02/19/2017 CONSULTATION REPORT REASON FOR CONSULTATION Urosepsis. HISTORY OF PRESENT ILLNESS This is a 36-year-old white female with a history of IV drug use, endocarditis, tricuspid valve resection, who was admitted yesterday with fever, chills, and transient hypotension with tachycardia. She appears to have ongoing drug use since drug screen was positive. She also appears to have a pacemaker and what appears to be tricuspid valve replacement as well. On admission, she was tachycardic, had borderline hypotension and leukocytosis, and was started on Zosyn and vancomycin. Today, vancomycin was discontinued and ID was consulted. The patient has a Perez catheter in place at this time, but she denies any UTI symptoms before coming to the hospital. She does have pyuria, and blood cultures are now positive for gram-positive cocci. The patient denies any IV drug use; however, her drug screen is positive for opiates and other drugs. She also has a history of intentional skin picking with multiple healing abrasions, but according to her, this is much better now. PAST MEDICAL HISTORY Diabetes, hypertension, right pleural effusion, and endocarditis. PAST SURGICAL HISTORY Right lower extremity fracture, right wrist fracture, tricuspid valve excision and replacement, VATS due to effusion and pacemaker implantation recently. SOCIAL HISTORY She smokes cigarettes. Denies alcohol. Uses drugs, but at this time, she is denying IV drug use. FAMILY HISTORY Noncontributory. CURRENT MEDICATIONS Pepcid, Arixtra, NovoLog, Levemir, Klonopin, piperacillin/tazobactam. She did get a dose of vancomycin, which was stopped earlier. SYSTEMIC REVIEW Fever and chills. There is no dysuria, cough, abdominal pain, headache, or mental status changes. No skin rashes or joint pains or swelling. PHYSICAL EXAMINATION Unit #: [id number] #: [id number] Patient: SHIREEN ÁLVAREZ GENERAL: Reveals a young white female, who is awake and alert, in no acute distress. At this time, she is fully conscious and oriented to time, place, and person. VITAL SIGNS: Temperature 101.8, heart rate 123, respirations 18, blood pressure 122/57, the lowest blood pressure was recorded at 98/54. SKIN: She has multiple facial scars apparently from intentional skin picking, but there are no active skin abrasions or erosions noted. NECK: Supple. JVD is elevated. There is no edema or rash. LUNGS: Clear to percussion and auscultation. HEART: Sounds are normal. ABDOMEN: Grossly obese. Soft and nontender. There is no rebound or guarding. Bowel sounds normal. NEUROLOGIC: Nonfocal. She has a Perez catheter in place. She has a central line in the right neck, which is fine as well as a peripheral IV site at this time. She did not have any IV site when she came to the hospital. DIAGNOSTIC STUDIES LABORATORY RESULTS: Blood cultures are showing gram-positive cocci in clusters. Urine culture is pending. UA is consistent with pyuria. Chest x-ray shows no infiltrate. Sodium 135, potassium 2.7, chloride 109, CO2 of 18, glucose 112, BUN 20, creatinine 1.1, calcium 7.1, AST 36, ALT 47, alkaline phosphatase 53, bilirubin 2.2, protein 5.2, albumin 2.1. PT is 14. White count is 8.3, it was 13 on admission. Hemoglobin 8.1, platelets 17, hematocrit 25.4. Lactic acid 2.8. Procalcitonin 27.9. IMPRESSION Sepsis, gram-positive, suspect Staphylococcus aureus, suspect ongoing IV drug use and recurrent endocarditis should be excluded. She also has pyuria, but no urinary tract infection symptoms. Certainly, urinary tract infection with secondary bacteremia is a possibility as well, but I strongly believe this will appear to be a descending staphylococcal infection in genitourinary tract. RECOMMENDATIONS Agree with Nicolasa. At this time, I will restart vancomycin, repeat blood cultures, get HIV test and echocardiogram. Further recommendations will follow. Dictated by... Jewel Arora/claudio TD: 02/20/2017 00:03 JOB #: [id number] CONSULTATION REPORT Page 1 of 1 X Kalin Balbuena MD CONSULTATION REPORT
--- NOTE | ~2017-02-18 | XA166 ---
[facility] A Service of [facility] RADIOLOGY TEXT RESULTS PATIENT: SHIREEN ÁLVAREZ LOCATION: [facility] 570-01 : [birth year] UNIT #: [id number] AGE: [address]: Hannah Naidu MD SEX: F ORDER DR: [id number] [facility] [address]. [place], [place] [address] [id number] I MR#: [id number] Acc #: [id number] NAME: SHIREEN ÁLVAREZ : 1980 SEX: F STUDY DATE/TIME: 03/03/2017 13:47 UNIT: [facility] ROOM: [facility] STUDY DESCRIPTION: XA PICC Line Placement WO Port Attending Physician: Hannah Naidu M.D. Ordering Physician: Kalin Balbuena M.D. Primary Care Physician: Sam Lopez M.D. MEDICAL IMAGING REPORT This report is preliminary unless electronic signature is present EXAM PICC line placement under ultrasound and fluoroscopy. HISTORY SUPPLIED Long-term venous access antibiotic therapy. PRE-PROCEDURE The procedure was explained to the patient and/or patient advertising sales representative including risks, benefits, potential complications and potential for alternative forms of treatment. Informed consent was obtained, and prior to initiating the procedure a formal timeout procedure was performed. PROCEDURE Using full standard sterile barrier technique, including caps, gowns, gloves, masks, as well as sterile skin preparation and standard sterile draping, the right arm (brachial vein stick) was prepped and draped in the usual fashion, and real-time sterile ultrasound guidance was used to localize an arm vein and to confirm vessel patency. A hard copy ultrasound image was recorded. After local anesthesia with 1% Xylocaine, the vein was punctured using real-time sterile ultrasound guidance, and an 0.018 guidewire was advanced into the cavoatrial junction, using fluoroscopic guidance. A 5-Spanish dual-lumen PICC was then measured and deployed with the tip positioned in the cavoatrial junction. The position of the line was documented with a radiographic image. The line was secured in place with an adhesive dressing and an antibiotic patch was applied. Total fluoro time was 0.5 minutes. IMPRESSION Successful placement of a 5-Spanish dual-lumen PowerPICC via the right arm (brachial vein stick) under ultrasound and fluoroscopic guidance. The tip [facility] A Service of [facility] RADIOLOGY TEXT RESULTS PATIENT: SHIREEN ÁLVAREZ LOCATION: [facility] 570-01 : [birth year] UNIT #: [id number] AGE: [address]: Hannah Naidu MD SEX: F ORDER DR: of the PICC is in good position in the cavoatrial junction. A single fluoroscopic spot image was obtained. Dictated by... Trenton Jurado M.D. THIS IS AN ELECTRONICALLY VERIFIED REPORT Trenton Jurado M.D. at 03/05/2017 9:17 AM Bayron TD: 03/04/2017 15:12 JOB #: [id number] MEDICAL IMAGING REPORT Page 1 of 1 COPY
--- NOTE | ~2017-02-18 | CR72 ---
[facility] A Service of [facility] RADIOLOGY TEXT RESULTS PATIENT: SHIREEN ÁLVAREZ LOCATION: [facility] 570 : 81 UNIT #: [id number] AGE: [address]: Hannah Naidu MD SEX: F ORDER DR: [id number] [facility] [address]. [place], [place] [address] [id number] I MR#: [id number] Acc #: [id number] NAME: SHIREEN ÁLVAREZ : 1980 SEX: F STUDY DATE/TIME: 03/03/2017 11:13 UNIT: [facility] ROOM: [facility] STUDY DESCRIPTION: CR Chest Single View Portable Attending Physician: Hannah Naidu M.D. Ordering Physician: Hannah Naidu M.D. Primary Care Physician: Sam Lopez M.D. MEDICAL IMAGING REPORT This report is preliminary unless electronic signature is present EXAM Chest, portable, 03/03/2017, 1113 hours. CLINICAL HISTORY 36-year-old with fever, shortness of air, and weakness dating back to 02/18/2017. Sepsis. COMPARISON 02/24/2017 FINDINGS Portable upright chest demonstrates median sternotomy change with pacer device unchanged. Lung volumes are low. Heart size is normal. There is interval clearing of patchy parenchymal densities from both lung bases. There is no pleural effusion. IMPRESSION Stable positioning of support equipment. Persistently low lung volumes with clearing of bilateral patchy densities from both lung bases. There is no definite pneumonia, edema, or effusion seen. Dictated by... Gina Bob M.D. THIS IS AN ELECTRONICALLY VERIFIED REPORT Gina Bob M.D. at 03/03/2017 3:51 PM JOBY/phoebe TD: 03/03/2017 14:20 JOB #: [id number] [facility] A Service of [facility] RADIOLOGY TEXT RESULTS PATIENT: SHIREEN ÁLVAREZ LOCATION: [facility] 570 : 81 UNIT #: [id number] AGE: [address]: Hannah Naidu MD SEX: F ORDER DR: MEDICAL IMAGING REPORT Page 1 of 1 COPY
--- NOTE | ~2017-02-18 | CR72 ---
[facility] A Service of [facility] RADIOLOGY TEXT RESULTS PATIENT: SHIREEN ÁLVAREZ LOCATION: [place] [address] : [birth year] UNIT #: [id number] AGE: [address]: Hannah Naidu MD SEX: F ORDER DR: [id number] [facility] [address] [place], [place] [address] [id number] I MR#: [id number] Acc #: [id number] NAME: SHIREEN ÁLVAREZ : 1980 SEX: F STUDY DATE/TIME: 02/22/2017 4:38 UNIT: [facility] ROOM: [facility] STUDY DESCRIPTION: CR Chest Single View Portable Attending Physician: Hannah Naidu M.D. Ordering Physician: Rick Dolan M.D. Primary Care Physician: Sam Lopez M.D. MEDICAL IMAGING REPORT This report is preliminary unless electronic signature is present EXAM Portable chest INDICATION Shortness of air today. PROCEDURE Frontal view chest COMPARISON 02/20/2017 FINDINGS Heart size stable. No new dense consolidation or visible pneumothorax. IMPRESSION Stable. Dictated by... Robby Stoner M.D. THIS IS AN ELECTRONICALLY VERIFIED REPORT Robby Stoner M.D. at 02/22/2017 10:13 PM DIEGO/ney TD: 02/22/2017 10:08 JOB #: [id number] MEDICAL IMAGING REPORT Page 1 of 1 COPY
--- NOTE | ~2017-02-18 | CR72 ---
[facility] A Service of [facility] RADIOLOGY TEXT RESULTS PATIENT: SHIREEN ÁLVAREZ LOCATION: [facility] [place] [facility] 570-01 : [birth year] UNIT #: [id number] AGE: [address]: Hannah Naidu MD SEX: F ORDER DR: [id number] [facility] [address]. [place], [place] [address] [id number] I MR#: [id number] Acc #: [id number] NAME: SHIREEN ÁLVAREZ : 1980 SEX: F STUDY DATE/TIME: 02/18/2017 12:26 UNIT: [facility] ROOM: [address] STUDY DESCRIPTION: CR Chest Single View Portable Attending Physician: Alex Magana M.D. Ordering Physician: Zia Brown M.D. Primary Care Physician: Sam Lopez M.D. MEDICAL IMAGING REPORT This report is preliminary unless electronic signature is present EXAM Portable AP view of the chest COMPARISON December 05, 2016 and December 02, 2016. INDICATION 36-year-old female with dyspnea for 3 days. Recent syncopal episode. FINDINGS Cardiomediastinal silhouette is within normal limits. Dual-lead left chest pacemaker appears stable. Cardiac valvular prosthesis is stable. Sternotomy wires appear intact. There is grossly stable interstitial prominence throughout the lungs, possibly reflecting bronchovascular crowding given low lung volumes. Also consider mild interstitial edema. No pleural effusion or pneumothorax. IMPRESSION Diffuse interstitial prominence throughout the lungs not significantly changed from November 2016. There is normal heart size but there is evidence of prior cardiac valve replacement device. Findings could reflect mild interstitial edema or possibly bronchovascular crowding given low lung volumes. No pleural effusion. Dictated by... Oscar Mondragon M.D. THIS IS AN ELECTRONICALLY VERIFIED REPORT Oscar Mondragon M.D. at 02/25/2017 5:09 PM KERON/chris TD: 02/18/2017 15:08 [facility] A Service of [facility] RADIOLOGY TEXT RESULTS PATIENT: SHIREEN ÁLVAREZ LOCATION: [facility] [place] [facility] 570-01 : [birth year] UNIT #: [id number] AGE: [address]: Hannah Naidu MD SEX: F ORDER DR: JOB #: [id number] MEDICAL IMAGING REPORT Page 1 of 1 COPY
--- NOTE | ~2017-02-18 | FU ---
[facility] Nutrition Therapy DATE: 03/10/17 Patient: SHIREEN ÁLVAREZ Physician: LEESA Address: [address] Room/Bed: [address] [place] [address], Zip: [place] [address] Admit Date: 02/18/17 Date of : [birth year] Height: 5 5 Weight: 179 81.3 NUTRITION MONITORING/FOLLOW-UP: Reason: PT SEEN FOR FOLLOW-UP DX: SYNCOPAL EPISODE Anthropometrics: 5'5", WT: 179# (81 KG), BMI: 29.8 -ADMIT WEIGHT: 184# Labs: CA+:8.1, ALB: 1.8 (03/04/17) Meds: FUROSEMIDE, LEVEMIR, NOVOLOG, PHENERGAN, NACL, KCL, MAG SULFATE I&O's: 2760/1006, 1 BM NOTED Skin: SCABS/SCAR FACE Assessment: CHART REVIEWED AND EVENTS NOTED. PT SEEN FOR FOLLOW-UP. PT REPORTS GOOD PO INTAKE AND APPETITE, NO C/O N/V/D. PT ADDS "I LIKE THE FOOD HERE AT [facility]". PT ADDS CONSUMING 100% OF MEALS. PER RN AND CHART, PLANS IN PLACE FOR PT TO D/C TO REHAB LATER TODAY. PT REPORTED NO DIET QUESTIONS AT THIS TIME. PT REQUESTS GLUCERNA SHAKES BE D/C'D. Dx: IMPAIRED GLYCEMIC CONTROL R/T PMH AEB ELEVATED BLOOD SUGARS, CC DIET.-ACTIVE -ALTERED NUTRIENT UTILIZATION R/T PMH AEB NEED FOR THERAPEUTIC DIET ORDER. Intervention: 1. HEALTHY HEART DIET 2. GLUCERNA SHAKE D/C'D 3. ADD CONSISTENT CARBOHYDRATE TO CURRENT DIET ORDER Monitoring, Evaluation and Goals: 1. ORAL INTAKE; CONSUME >50% OF MEALS W/NO C/O N/V/D-MET 2. WEIGHTS; PROMOTE GRADUAL WEIGHT LOSS-IN PROGRESS 3. LABS; WNL-ACTIVE/MET 4. SKIN; PROMOTE SKIN HEALING-IN PROGRESS MONITOR: -PO INTAKE/APPETITE -WEIGHTS Recommendations: 1. PLEASE D/C GLUCERNA SHAKE W/DINNER MEAL 2. RECOMMEND TO ADD CONSISTENT CARBOHYDRATE TO CURRENT DIET ORDER 2' PMH [facility] Nutrition Therapy DATE: 03/10/17 Patient: SHIREEN ÁLVAREZ Physician: LEESA Address: [address] Room/Bed: 570-01 [facility], Zip: [place] [address] Admit Date: 02/18/17 Date of : [birth year] Height: 5 5 Weight: 179 81.3 3. CONSIDER OBTAINING UPDATED A1c TO BETTER ASSESS DM MANAGEMENT NO NUTRITION RISK AT THIS TIME Respectfully, FELIPA CODY MS, RD, LD Food and Nutritional Services [facility] cc: client file
--- NOTE | ~2017-02-18 | CO ---
Unit #: [id number] #: [id number] Patient: BRADLEY ÁLVAREZ [id number] [address] [place], [place] [address] [id number] MR#: [id number] NAME: BRADLEY ÁLVAREZ ROOM: 570 Age: 36 Sex: F Admission Date: 02/18/2017 : 1980 Attending Physician: Hannah Naidu M.D. Primary Care Physician: Sam Lopez M.D. CONSULTATION REPORT REVISED REPORT REASON FOR CONSULTATION Tricuspid valve endocarditis. HISTORY OF PRESENT ILLNESS This is a 36-year-old white female who is well known to our group, who has a history of previous IV polysubstance abuse including heroin and had tricuspid valve endocarditis and underwent tricuspid valve excision in 02/[address] David. In 10/2016 after completing her antibiotic therapy, she underwent tricuspid valve replacement. During that hospitalization, she had complete heart block and underwent permanent pacemaker implantation. She has had recurrent right pleural effusions in the past with history of video-assisted thoracoscopy with decortication and thoracentesis in the past. The patient is admitted with fever, weakness, nausea, vomiting, and diarrhea. She was found to have urinary tract infection and was admitted with sepsis. Blood cultures were obtained, which showed one bottle or two with Staph aureus. Infectious Disease is following. She has been treated with IV fluids. She had a repeat transesophageal echocardiogram on 02/22/2017, in which she was found to have two highly mobile large vegetations with severe tricuspid stenosis. She has normal left ventricular systolic function. The repeat cultures are negative. The patient states she has not used IV drugs. Her urine drug screen was positive for opiates, but she gives a history of having pain medication after her surgery in October. She also complains of lower extremity edema increase in abdominal girth, generalized pain, and dyspnea. She complains of tooth pain where there is erythema at the right cheek with increase in temperature and mildly swollen. Her white count is normal. PAST MEDICAL HISTORY 1. Transesophageal echocardiogram on 02/22/2017, shows an ejection fraction of 65%. There is trace mitral regurgitation and trace pulmonic valvular regurgitation. No thrombus in the left atrium or left atrium appendage. Lipomatous hypertrophy of the IAS. The bioprosthetic valve is well-seated in the tricuspid position. It has two large vegetations, the largest measuring 3.0 x 1.5 cm that are highly mobile causing mild tricuspid regurgitation, but severe tricuspid stenosis. The mean gradient across the valve is 16 mmHg suggestive of severe stenosis. 2. Tricuspid valve endocarditis, status post tricuspid excision on 02/26/[address] David at [facility]. 3. Tricuspid valve replacement on 11/01/[address] David at [facility]. Unit #: [id number] #: [id number] Patient: BRADLEY ÁLVAREZ 4. Complete heart block, status post Medtronic permanent pacemaker on in 11/03/2016 at [facility] by Dr. Land. 5. Chronic diastolic heart failure. 6. Recurrent right pleural effusion with history of thoracentesis and right video-assisted thoracoscopy with decortication on 09/07/2016. 7. IV drug use. 8. MRSA bacteremia. 9. Hypertension. 10. Diabetes mellitus, type 2. 11. Anemia. 12. COPD. 13. Thrombocytopenia. 14. Chronic anticoagulation with Coumadin. PAST SURGICAL HISTORY As stated above. Incision and drainage of wrist abscess. SOCIAL HISTORY The patient is not employed. She continues to smoke less than a half a pack of cigarettes a day. She denies illicit drug use currently or alcohol use. FAMILY HISTORY Negative for coronary artery disease. ALLERGIES Iodine, morphine, and shellfish. HOME MEDICATIONS 1. Levemir 12 units subcu nightly. 2. Coumadin 10 mg daily. 3. Clonazepam 0.5 mg q.8 hours. 4. Roxicodone 10 mg q.6 hours. REVIEW OF SYSTEMS CONSTITUTIONAL: Has subjective fever and weakness on admission. Positive for weight gain, but no weight loss. HEENT: No headache, vision changes or difficulty with swallowing. No dizziness. CARDIOVASCULAR: There are symptoms of angina. Denies palpitations. EXTREMITIES: Positive for lower extremity edema. PHYSICAL EXAMINATION VITAL SIGNS: Blood pressure 131/67, heart rate 105, temperature 98.5. GENERAL: This is a 36-year-old young obese white female, who is in no acute respiratory distress. NEUROLOGIC: She is awake, alert, and oriented. There are no focal weaknesses. NECK: Trachea is midline. No thyromegaly or lymphadenopathy. Positive jugular venous distention. HEART: S1 and S2. Heart sounds are normal. No murmurs. No rubs or clicks. Regular rate and rhythm that is tachycardic. ABDOMEN: Soft and obese with bowel sounds are present. EXTREMITIES: With 2+ leg edema. SKIN: Warm and dry. DIAGNOSTIC STUDIES LABORATORY RESULTS: Hemoglobin 8.0, hematocrit 25.6, platelet count 108, Unit #: [id number] #: [id number] Patient: BRADLEY ÁLVAREZ white count 16.4. Sodium 134, potassium 3.7, BUN 9, creatinine 0.8, glucose 125, magnesium 1.8. TSH 1.50. IMAGING STUDIES: Chest x-ray shows small bilateral effusions. CARDIOVASCULAR: EKG; sinus tachycardia with a rate of 140 beats per minute with left atrial enlargement. IMPRESSION 1. Methicillin-Susceptible Staphylococcus aureus sepsis. 2. Recurrent tricuspid valve endocarditis. 3. Recent tricuspid valve repair 10/2016. 4. Acute right heart failure secondary to tricuspid valve stenosis. 5. Permanent pacemaker. 6. Acute on chronic diastolic heart failure with ejection fraction of 65%. 7. Severe tricuspid stenosis. 8. Anemia. PLAN 1. Cardiology was consulted for tricuspid valve endocarditis. The patient had one set of blood cultures that was positive for Staph aureus. Second set is negative. She is currently on antibiotics as directed by ID. 2. We will discuss with Dr. David/Dr. Clements regarding tricuspid valve removal because of endocarditis. It is questionable if the patient is a candidate for any additional valve replacement especially given that she has had 2 cardiac surgery in the past 1 year. 3. Need to find the effective source. It may be that she require dental extractions given that she has erythema of the right cheek with swelling and increase in temperature with questionable cellulitis. 4. The patient denies any current IV drug use. 5. She has evidence of right heart failure. We will diurese with IV diuretics. 6. Further recommendations after discussion with the cardiac surgeons. Thank you for allowing us to assist in this patient's care. ADDITIONAL JOB #: [id number] Dictated by... Luis Boss/claudio TD: 02/28/2017 03:28 JOB #: [id number] CC: Kimberly/sarwatision Please Delete CONSULTATION REPORT Page 1 of 1 X Bradley Guo APRN CONSULTATION REPORT
--- NOTE | ~2017-02-18 | CR72 ---
[facility] A Service of [facility] & [facility] RADIOLOGY TEXT RESULTS PATIENT: SHIREEN ÁLVAREZ LOCATION: [address] : [birth year] UNIT #: [id number] AGE: [address]: Hannah Naidu MD SEX: F ORDER DR: [id number] [facility] [address]. [place], [place] [address] [id number] I MR#: [id number] Acc #: [id number] NAME: SHIREEN ÁLVAREZ : 1980 SEX: F STUDY DATE/TIME: 02/19/2017 4:25 UNIT: [facility] ROOM: [facility] STUDY DESCRIPTION: CR Chest Single View Portable Attending Physician: Alex Magana M.D. Ordering Physician: Rick Dolan M.D. Primary Care Physician: Sam Lopez M.D. MEDICAL IMAGING REPORT This report is preliminary unless electronic signature is present EXAM Portable chest INDICATION Sepsis. Shortness of air since February 18. PROCEDURE Frontal view chest. COMPARISON 02/18/2017 FINDINGS Heart size unchanged. No new dense consolidation. No pneumothorax. IMPRESSION Stable. Dictated by... Robby Stoner M.D. THIS IS AN ELECTRONICALLY VERIFIED REPORT Robby Stoner M.D. at 02/19/2017 10:05 PM DIEGO/chris TD: 02/19/2017 07:26 JOB #: [id number] MEDICAL IMAGING REPORT Page 1 of 1 COPY
--- NOTE | ~2017-02-18 | CR72 ---
[facility] A Service of [facility] & [facility] RADIOLOGY TEXT RESULTS PATIENT: SHIREEN ÁLVAREZ LOCATION: [address] : [birth year] UNIT #: [id number] AGE: [address]: Hannah Naidu MD SEX: F ORDER DR: [id number] [facility] [address] [place], [place] [address] [id number] I MR#: [id number] Acc #: [id number] NAME: SHIREEN ÁLVAREZ : 1980 SEX: F STUDY DATE/TIME: 02/18/2017 17:39 UNIT: [facility] ROOM: [facility] STUDY DESCRIPTION: CR Chest Single View Portable Attending Physician: Alex Magana M.D. Ordering Physician: Rick Dolan M.D. Primary Care Physician: Sam Lopez M.D. MEDICAL IMAGING REPORT This report is preliminary unless electronic signature is present EXAM Portable chest, 02/18/17. HISTORY Post-invasive procedure central line placement today, dyspnea for 3 days with recent syncopal episode. FINDINGS The cardiac and mediastinal structures are stable compared with earlier today at 12:26, status post median sternotomy. Cardiac pacemaker is unchanged. Right internal jugular central line tip is in the superior vena cava. There is no pneumothorax. Poor inspiratory result with bibasilar atelectasis. There are no pleural effusions. IMPRESSION Insertion of right internal jugular central line with the tip in the superior vena cava compared with earlier today at 12:26. No pneumothorax. Dictated by... Dm Curtis M.D. THIS IS AN ELECTRONICALLY VERIFIED REPORT Dm Curtis M.D. at 02/19/2017 2:13 PM ALBINA/cecilio TD: 02/18/2017 20:04 JOB #: [id number] MEDICAL IMAGING REPORT Page 1 of 1 COPY
--- NOTE | ~2017-02-18 | A ---
[facility] DATE: 02/23/17 Patient: SHIREEN ÁLVAREZ Physician: LEESA Address: [address] Room/Bed: [address], Zip: [place] [address] Admit Date: 02/18/17 Date of : [birth year] Height: 5 5 Weight: 220 100 NUTRITIONAL ASSESSMENT: REASON: LOS IN ICU ASSESSMENT PT IS 36 Y.O. FEMALE ADMITTED FOR SYNCOPAL EPISODE, SEPSIS PMH: IV DRUG USE, DM, HTN, PERSISTENT BACTEREMIA, TRICUSPID VALVE ENDOCARDITIS Anthropometrics: 5'5", WT: 184#, BMI: 30.6 Labs: GLU: 175, NA+:134, CA+:7.2, ALB: 1.9, ALT: 62, PHOS: 1.7 Meds: D5%, KCL, NACL, LEVEMIR, NOVOLOG, PHENERGAN I/O & Bowel function: 5398/1275 Skin Integrity: SCABS/SCARS OBSERVED FACE Assessment: CHART REVIEWED AND EVENTS NOTED. PT SEEN FOR LENGTH OF STAY ASSESSMENT (5 DAYS IN ICU). PT SLEEPY/LETHARGIC AT TIME OF VISIT REPORTING GOOD PO INTAKE AND APPETITE, NOTING NO C/O V/D BUT NOTING SOME NAUSEA THIS AM. PT DENIES ANY RECENT WEIGHT LOSS. OF NOTE, RD ASSESSED PT BACK IN AUGUST 2016 NOTING PT TO HAVE GOOD PO INTAKE AND APPETITE AND NO WEIGHT LOSS NOTED. RD ENCOURAGED ADEQUATE KCAL AND PROTEIN INTAKE, PT AGREED. PT REPORTED NO DIET QUESTIONS AT THIS TIME. PT REFUSED SUPPLEMENTS AT THIS TIME. RD TO REMAIN AVAILABLE. Dx: IMPAIRED GLYCEMC CONTROL R/T PMH AEB ELEVATED BLOOD SUGARS NOTED, NEED FOR CC DIET. Intervention: 1. CC DIET Monitoring, Evaluation and Goals: 1. ORAL INTAKE; CONSUME >50% OF MEALS 2. LABS; WNL: GLU, PHOS 3. WEIGHTS; PROMOTE GRADUAL WEIGHT LOSS TOWARDS HEALTHY BMI 4. SKIN; PROMOTE SKIN HEALING MONITOR: -PO INTAKE/APPETITE -WEIGHTS -LABS Recommendations: [facility] DATE: 02/23/17 Patient: SHIREEN ÁLVAREZ Physician: LEESA Address: [address] Room/Bed: [address], Zip: [place] [address] Admit Date: 02/18/17 Date of : [birth year] Height: 5 5 Weight: 220 100 1. CONTINUE CURRENT DIET ORDER ABOVE 2. ENCOURAGE ADEQUATE PO INTAKE 3. CONSIDER OBTAINING UPDATED A1c TO BETTER ASSESS DM MANAGEMENT RD WILL F/U PER PROTOCOL PT IS MILDLY COMPROMISED Respectfully, FELIPA CODY MS, RD, LD [facility] cc: client file
--- NOTE | ~2017-02-18 | DS ---
Unit #: [id number] #: [id number] Patient: BRADLEY GRAY [id number] [address] [address] [id number] I MR#: [id number] NAME: BRADLEY GRAY ROOM: 570 Age: 36 Sex: F Admission Date: 02/18/2017 : 1980 Discharge Date: 03/10/2017 Attending Physician: Hannah Naidu M.D. Primary Care Physician: Sam Lopez M.D. DISCHARGE SUMMARY DISPOSITION [facility]. CONSULTATIONS DURING HOSPITALIZATION 1. Dr. Rick Dolan from pulmonary services. 2. Dr. Acosta from hematology services. 3. Dr. Kalin Balbuena from infectious disease services. 4. Dr. Mercer from cardiology services. FINAL DIAGNOSES 1. Methicillin sensitive Staphylococcus aureus sepsis. 2. Tricuspid valve endocarditis, recurrent. 3. History of tricuspid valve repair in November 2016 at [facility]. 4. Aortic root abscess. 5. Right ventricular failure. 6. Diabetes mellitus type 2. 7. Complete heart block, status post Medtronic permanent pacemaker in October 2016 at [facility] 8. Chronic diastolic heart failure. 9. Hypertension. 10. Chronic anemia. 11. Chronic thrombocytopenia. 12. Chronic obstructive pulmonary disease. 13. Intravenous drug abuse. 14. Chronic anticoagulation therapy. DISCHARGE MEDICATIONS 1. Nafcillin 2 g IV q.4 until 04/01/17. 2. Rifampin 300 mg p.o. b.i.d. until 04/01/17. 3. On 04/02/17, begin Keflex 500 mg t.i.d. for lifelong. 4. Tylenol 650 q.6 p.r.n. 5. KlonoPIN 0.5 mg q.8 hourly. 6. Furosemide 60 mg twice a day. 7. Levemir 15 units subcu. every day. 8. Niferex 150 mg twice a day. 9. Oxycodone 10 mg q.6 p.r.n. 10. Potassium 40 mEq p.o. every day. 11. Patient is on chronic anticoagulation therapy. She was on Arixtra in the hospital. We are going to discuss with cardiology for further decision. DIAGNOSTIC STUDIES LABORATORY: Workup on discharge: Sodium 135, potassium 4.3, chloride 106, BUN 14, creatinine 0.9, calcium 8.1, lactic acid 1.3. CBC shows WBC Unit #: [id number] #: [id number] Patient: BRADLEY GRAY 6.4, hemoglobin 10.2, hematocrit 22.5, and platelet count of 128. Glucose 173. BNP on 03/05/2017 shows 217. SIGNIFICANT RADIOLOGICAL STUDIES: Patient has had multiple imaging studies during hospitalization. On February 23, she had a CT chest that showed decreased size in right pleural effusion, status post valve repair, and consolidation right lower lobe and lingula. CT scan of the abdomen and pelvis was also done on 02/23, which shows cirrhotic morphology of the liver with portal hypertension including splenomegaly and ascites. Diffuse mild mesenteric and retroperitoneal adenopathy of uncertain clinical significance. Patient may need short-term CT followup to document resolution. Ultrasound of upper extremity show superficial venous thrombus in the right cephalic vein in the distal aspect of the upper arm. No evidence of DVT. HOSPITAL COURSE Ms. Bradley Gray is a 36-year-old female who has had multiple medical problems. Was admitted to [facility] on February 18, 2017. Patient is very well known to us from multiple admissions. Patient has had MRSA endocarditis. She had tricuspid valve revision done on December 19 at [facility] She continued with IV drug abuse. Patient was admitted with fever and diagnosed with recurrent tricuspid endocarditis. Patient has had a very lengthy stay during hospitalization. She continued to have persistent fever until 24 hours ago. Her T max 24 hours ago was 99. Patient's leukocytosis has improved. Patient was evaluated by cardiology, pulmonary, and infectious disease. Patient does have aortic root abscess. Patient is not a surgical candidate as per cardiology. Patient will need long-term antibiotics. She will be on nafcillin and rifampin until 04/01/17 and after that she will be on Keflex for lifelong. Drug cessation counseling has been done at length. Patient does have history of right ventricular failure. Patient received IV diuretics beginning of the hospital stay and that has been changed to p.o. Patient continued to have hypokalemia during hospitalization. That was replaced. Patient will be discharged to [facility] for ongoing treatment. VITAL SIGNS ON DISCHARGE Blood pressure is 122/74, respiratory rate 18, pulse is 101, temperature 98.6, and oxygen saturation is 95%. DISCHARGE INSTRUCTIONS 1. Continue nafcillin 2 g IV q.4 hourly until 04/01/17. 2. Continue rifampin 300 mg p.o. q.12 through 04/01/16. 3. Weekly CMP and CBC while on antibiotic. 4. On 04/02/17, begin Keflex 500 mg p.o. t.i.d. for life. 5. Patient has PICC line and accepting facility accepts responsibility of PICC line in IV drug abuse patient. This PICC line needs to be discontinued with the last dose of IV antibiotic, which will be on 04/01/17. 6. Patient will have 1 unit of packed RBC transfusion before discharge. 7. Anticoagulation therapy will be decided per cardiology. Patient is on chronic anticoagulation therapy. Patient is on Arixtra at this time. Plan of care has been discussed with patient at length. She does verbalize understanding. Unit #: [id number] #: [id number] Patient: BRADLEY GRAY Dictated by... Jewel Thornton/leah TD: 03/10/2017 09:58 JOB #: [id number] DISCHARGE SUMMARY Page 1 of 1 X Hannah Naidu MD X DISCHARGE SUMMARY
--- NOTE | ~2017-02-18 | CR72 ---
[facility] A Service of [facility] & [facility] RADIOLOGY TEXT RESULTS PATIENT: SHIREEN ÁLVAREZ LOCATION: [address] : [birth year] UNIT #: [id number] AGE: [address]: Hannah Naidu MD SEX: F ORDER DR: [id number] [facility] [address]. [place], [place] [address] [id number] I MR#: [id number] Acc #: [id number] NAME: SHIREEN ÁLVAREZ : 1980 SEX: F STUDY DATE/TIME: 02/20/2017 5:38 UNIT: [facility] ROOM: [facility] STUDY DESCRIPTION: CR Chest Single View Portable Attending Physician: Hannah Naidu M.D. Ordering Physician: Rick Dolan M.D. Primary Care Physician: Sam Lopez M.D. MEDICAL IMAGING REPORT This report is preliminary unless electronic signature is present EXAM Portable chest. INDICATIONS Shortness of air today. PROCEDURE Frontal view chest. COMPARIOSN 02/19/2017. FINDINGS Heart size stable. Persistent low lung volumes. No new dense consolidation. IMPRESSION Stable. Dictated by... Robby Stoner M.D. THIS IS AN ELECTRONICALLY VERIFIED REPORT Robby Stoner M.D. at 02/21/2017 9:57 PM EED/gz TD: 02/20/2017 09:07 JOB #: [id number] MEDICAL IMAGING REPORT Page 1 of 1 COPY
--- NOTE | ~2017-02-18 | CR72 ---
[facility] A Service of [facility] & [facility] RADIOLOGY TEXT RESULTS PATIENT: SHIREEN ÁLVAREZ LOCATION: [facility] 570-01 : [birth year] UNIT #: [id number] AGE: [address]: Hannah Naidu MD SEX: F ORDER DR: [id number] [facility] [address]. [place], [place] [address] [id number] I MR#: [id number] Acc #: [id number] NAME: SHIREEN ÁLVAREZ : 1980 SEX: F STUDY DATE/TIME: 03/05/2017 10:03 UNIT: [facility] ROOM: [facility] STUDY DESCRIPTION: CR Chest Single View Portable Attending Physician: Hannah Naidu M.D. Ordering Physician: Hannah Naidu M.D. Primary Care Physician: Sam Lopez M.D. MEDICAL IMAGING REPORT This report is preliminary unless electronic signature is present EXAM Portable chest HISTORY Fever, shortness of breath and weakness beginning 02/18. FINDINGS An AP portable view is obtained and compared to that of 03/03. Cardiac size is stable. The patient has patchy infiltrates in the right base and in the left lung peripherally. These are better seen on the current study due to positioning. Transvenous pacemaker and valve are noted. Right-sided PICC line terminates in the SVC. CONCLUSION Continued basilar infiltrates both on the right and left; these are better seen on the current study. Dictated by... Trenton Jurado M.D. THIS IS AN ELECTRONICALLY VERIFIED REPORT Trenton Jurado M.D. at 03/09/2017 7:15 AM TRIPP/justine TD: 03/05/2017 20:30 JOB #: [id number] MEDICAL IMAGING REPORT Page 1 of 1 COPY
--- NOTE | ~2017-02-18 | CT57 ---
[facility] A Service of [facility] & [facility] RADIOLOGY TEXT RESULTS PATIENT: SHIREEN ÁLVAREZ LOCATION: [address] : [birth year] UNIT #: [id number] AGE: [address]: Hannah Naidu MD SEX: F ORDER DR: [id number] [facility] [address] [place], [place] [address] [id number] I MR#: [id number] Acc #: [id number] NAME: SHIREEN ÁLVAREZ : 1980 SEX: F STUDY DATE/TIME: 02/23/2017 10:24 UNIT: [facility] ROOM: [facility] STUDY DESCRIPTION: CT Chest Wo Cont Attending Physician: Hannah Naidu M.D. Ordering Physician: Kalin Balbuena M.D. Primary Care Physician: Sam Lopez M.D. MEDICAL IMAGING REPORT This report is preliminary unless electronic signature is present EXAM Chest CT, 02/23/17 HISTORY Shortness of air for 2 days with right upper quadrant pain. TECHNIQUE Axial noncontrast images were obtained through the chest. Multiplanar reformats were obtained. This CT exam was performed with one or more of the following radiation dose reduction techniques: automatic exposure control, adjustment of mA and/or kV according to patient size, and iterative reconstruction. COMPARISON STUDIES 10/04/[address] exam was performed with one or more of the following radiation dose reduction techniques: automatic exposure control, adjustment of mA and/or kV according to patient size, and iterative reconstruction. FINDINGS There are small bilateral pleural effusion, right larger than left. The right pleural effusion is improved from the prior study while the left is slightly larger. No pericardial effusion. The patient is status post tricuspid repair. No adenopathy is seen. There are areas of consolidation in both lungs. It is most pronounced in the right lower lobe. There is a more rounded area of consolidation in the right lower lobe measuring 2.6 x 2.2 cm. Cavitary right lower lobe lesion measures 1 cm. There is another poorly defined area of nodular consolidation in the left lower lobe. Confluent consolidation noted in the lingula. Some of these areas of consolidation likely reflect septic emboli and others have STS. [facility] A Service of [facility] & [facility] RADIOLOGY TEXT RESULTS PATIENT: SHIREEN ÁLVAREZ LOCATION: [facility]ICCU2-07 : [birth year] UNIT #: [id number] AGE: [address]: Hannah Naidu MD SEX: F ORDER DR: the appearance of bland pneumonia. For a description of findings in the upper abdomen, please see the abdomen and pelvis CT report dictated separately. IMPRESSION 1. Decreased size and a right pleural effusion, now small. There is a very small left effusion. 2. Status post valve repair. 3. Consolidations in the right lower lobe and lingula concerning for pneumonia. Other areas of consolidation appear somewhat nodular bilaterally including the cavitary right lower lobe nodule. These are presumably septic emboli. Dictated by... Felix Purdy Jr., M.D. THIS IS AN ELECTRONICALLY VERIFIED REPORT Felix Purdy Jr., M.D. at 02/24/2017 6:09 AM IVY/betty TD: 02/23/2017 14:22 JOB #: [id number] MEDICAL IMAGING REPORT Page 1 of 1 COPY
--- NOTE | ~2017-02-18 | CR72 ---
[facility] A Service of [facility] RADIOLOGY TEXT RESULTS PATIENT: SHIREEN ÁLVAREZ LOCATION: [address] : [birth year] UNIT #: [id number] AGE: [address]: Hannah Naidu MD SEX: F ORDER DR: [id number] [facility] [address] [facility] [address] [place], [place] [address] [id number] MR#: [id number] #: [id number] NAME: SHIREEN ÁLVAREZ : 1980 SEX: F STUDY DATE/TIME: 02/23/2017 5:29 UNIT: [facility] ROOM: [facility] STUDY DESCRIPTION: CR Chest Single View Portable Attending Physician: Hannah Naidu M.D. Ordering Physician: Rick Dolan M.D. Primary Care Physician: Sam Lopez M.D. MEDICAL IMAGING REPORT This report is preliminary unless electronic signature is present EXAM Portable chest, 02/23. INDICATION Sepsis, weakness, shortness of air. Symptoms for 4 days. History of IV drug use. FINDINGS AP portable chest is compared with 02/22/2017. Lung volumes remain quite low. Heart size stable status post valve repair. There are continued alveolar consolidations in the bases, right greater than left, and there are small bilateral effusions. No pneumothorax is seen. Dictated by... Felix Purdy Jr., M.D. THIS IS AN ELECTRONICALLY VERIFIED REPORT Felix Purdy Jr., M.D. at 02/24/2017 6:06 AM IVY/phoebe TD: 02/23/2017 10:37 JOB #: [id number] MEDICAL IMAGING REPORT Page 1 of 1 COPY
[2017-02-18 12:09] LABS: URINE SOURCE CLEAN CATCH
[2017-02-18 12:13] LABS: BASOPHIL% 0.2 % (0-2.5); EOSINOPHIL% 0.2 % (0.0-7.0); HEMATOCRIT 32.6 % (35.0-45.0); LYMPHOCYTE# 0.4 X10e3 (1.0-3.5); LYMPHOCYTE% 2.8 % (17.0-45.0); MEAN CELL VOLUME 66.6 FL (83-96); MEAN CORPUSCULAR HEMOGLOBIN 20.4 PG (28-34); MEAN CORPUSCULAR HGB CONC 30.7 g/dL (30-36); MEAN PLATELET VOLUME 8.8 FL (6.5-11.5); MONOCYTE# 0.9 X10e3 (0-1.0); MONOCYTE% 6.8 % (3.0-12.0); NEUTROPHIL# 11.3 X10e3 (1.5-7.1); RED BLOOD COUNT 4.89 X10e (3.90-5.30); RED CELL DISTRIBUTION WIDTH 21.5 % (11.0-15.5); WHITE BLOOD COUNT 12.6 X10e3 (4.0-10.5)
[2017-02-18 12:17] LABS: PLATELET COUNT 35 X10e3 (140-420)
[2017-02-18 12:18] LABS: DIFF IND YES
[2017-02-18 12:20] LABS: URINE APPEARANCE TURBID; URINE BLOOD 3+ (NEG); URINE COLOR ORANGE; URINE GLUCOSE NEG (NEG); URINE KETONE NEG (NEG); URINE LEUKOCYTE ESTERASE 2+ (NEG); URINE NITRATE POS (NEG); URINE PH 5.5 (5-8); URINE PROTEIN 3+ (NEG); URINE SPECIFIC GRAVITY 1.033 (1.003-1.035)
[2017-02-18 12:22] LABS: CULTURE INDICATED? YES; URINE BACTERIA AUWI 2+ (NEGATIVE); URINE SQUAMOUS EPITHELIAL CELL MANY /[HPF]; UWBCS1 AUWI 100-200 (0-5)
[2017-02-18 12:26] LABS: INR 1.3; PARTIAL THROMBOPLASTIN TIME 33.3 SECONDS (23.5-31.3); PROTHROMBIN TIME (PATIENT) 13.6 SECONDS (9.6-11.5)
[2017-02-18 12:28] LABS: URINE BILIRUBIN POS (NEG)
[2017-02-18] MEDS ORDERED: COUMADIN10 MG PO (12:37)
[2017-02-18] MEDS ORDERED: LEVEMIR100 UNITS/ SUBQ (12:37)
[2017-02-18 12:38] LABS: PLATELET ESTIMATE DECREASED (NORMAL)
[2017-02-18] MEDS ORDERED: KLONOPIN PO (12:38)
[2017-02-18 12:39] LABS: RBC NORMAL YES
[2017-02-18] MEDS ORDERED: ROXICODONE30 M1 PO (12:39)
[2017-02-18 12:41] LABS: ALBUMIN SERUM 2.9 g/dL (3.5-5.0); BILIRUBIN, DIRECT 0.6 mg/dL (0.0-0.2); BILIRUBIN,INDIRECT 0.8 mg/dL (0.0-0.9); BILIRUBIN,TOTAL 1.4 mg/dL (0.2-2.0); CALCIUM SERUM 8.3 mg/dL (8.4-10.2); CREATININE SERUM 1.4 mg/dL (0.6-1.4); GLOM FILT RATE Estimated 48.6 mL/min (>60); POTASSIUM 3.5 mmol/L (3.5-5.1); PROTEIN TOTAL SERUM 6.7 g/dL (6.0-8.3)
[2017-02-18 12:51] LABS: AMPHETAMINE NEG (NEG); BARBITURATES NEG (NEG); BENZODIAZEPINES POS (NEG); COCAINE NEG (NEG); MARIJUANA POS (NEG); OPIATES POS (NEG); TRICYCLIC ANTIDEPRESSANTS NEG (NEG); U METHADONE NEG (NEG)
[2017-02-18 15:59] LABS: ARTERIAL BLD GAS O2 SATURATION 94.4 % (90.0-100.0); ARTERIAL BLOOD GAS HCO3 18.7 mmol/L; ARTERIAL BLOOD GAS MET HB 0.9 %sat (0.0-2.0); ARTERIAL BLOOD GAS PCO2 24.7 mmHg (35.0-45.0); ARTERIAL BLOOD GAS pH 7.487 (7.350-7.450)
[2017-02-18 16:00] LABS: ARTERIAL BLOOD GAS ALLEN TEST NORMAL; ARTERIAL BLOOD GAS ART SITE RIGHT RADIAL; ARTERIAL BLOOD GAS DELIVERY ROOM AIR; ARTERIAL BLOOD GAS PO2 72.2 mmHg (80.0-100); ARTERIAL DRAW? YES
[2017-02-18 18:21] LABS: SODIUM URINE RANDOM <10 mmol/L
[2017-02-18 19:24] LABS: OSMOLALITY,URINE 353 mOsmo/kg (250-900)
[2017-02-19 04:28] LABS: ARTERIAL BLD GAS O2 SATURATION 94.2 % (90.0-100.0); ARTERIAL BLOOD GAS CARBOXY HB 1.2 %sat (0.0-9.0); ARTERIAL BLOOD GAS HCO3 17.8 mmol/L; ARTERIAL BLOOD GAS MET HB 0.7 %sat (0.0-2.0); ARTERIAL BLOOD GAS PCO2 27.5 mmHg (35.0-45.0); ARTERIAL BLOOD GAS pH 7.419 (7.350-7.450)
[2017-02-19 04:42] LABS: ARTERIAL DRAW? YES
[2017-02-19 04:43] LABS: ARTERIAL BLOOD GAS ALLEN TEST NORMAL; ARTERIAL BLOOD GAS ART SITE LEFT RADIAL; ARTERIAL BLOOD GAS DELIVERY ROOM AIR
[2017-02-19 05:38] LABS: BASOPHIL% 0.5 % (0-2.5); EOSINOPHIL# 0.1 X10e3 (0-0.7); EOSINOPHIL% 1.5 % (0.0-7.0); HEMATOCRIT 25.4 % (35.0-45.0); HEMOGLOBIN 8.1 gm/dL (12.0-16.0); LYMPHOCYTE# 0.3 X10e3 (1.0-3.5); LYMPHOCYTE% 3.8 % (17.0-45.0); MEAN CORPUSCULAR HEMOGLOBIN 21.1 PG (28-34); MEAN PLATELET VOLUME 9.1 FL (6.5-11.5); MONOCYTE# 0.7 X10e3 (0-1.0); MONOCYTE% 7.5 % (3.0-12.0); NEUTROPHIL# 7.5 X10e3 (1.5-7.1); NEUTROPHIL% 86.7 % (40-75); RED BLOOD COUNT 3.86 X10e (3.90-5.30); RED CELL DISTRIBUTION WIDTH 21.6 % (11.0-15.5); WHITE BLOOD COUNT 8.6 X10e3 (4.0-10.5)
[2017-02-19 05:40] LABS: INR 1.3
[2017-02-19 05:41] LABS: PLATELET COUNT 17 X10e3 (140-420)
[2017-02-19 05:42] LABS: DIFF IND NO
[2017-02-19 07:04] LABS: ALBUMIN SERUM 2.1 g/dL (3.5-5.0); BILIRUBIN,TOTAL 2.2 mg/dL (0.2-2.0); BUN/CREATININE RATIO 18.18; CALCIUM SERUM 7.1 mg/dL (8.4-10.2); CREATININE SERUM 1.1 mg/dL (0.6-1.4); PROTEIN TOTAL SERUM 5.2 g/dL (6.0-8.3)
[2017-02-19 07:06] LABS: POTASSIUM 2.7 mmol/L (3.5-5.1)
[2017-02-19 16:39] LABS: BASOPHIL% 0.4 % (0-2.5); EOSINOPHIL# 0.1 X10e3 (0-0.7); EOSINOPHIL% 0.8 % (0.0-7.0); LYMPHOCYTE# 1.2 X10e3 (1.0-3.5); MEAN CELL VOLUME 67.2 FL (83-96); MEAN CORPUSCULAR HEMOGLOBIN 20.8 PG (28-34); MEAN CORPUSCULAR HGB CONC 30.9 g/dL (30-36); MEAN PLATELET VOLUME 8.6 FL (6.5-11.5); MONOCYTE# 0.6 X10e3 (0-1.0); MONOCYTE% 7.3 % (3.0-12.0); NEUTROPHIL# 5.7 X10e3 (1.5-7.1); NEUTROPHIL% 75.5 % (40-75); RED BLOOD COUNT 3.86 X10e (3.90-5.30); RED CELL DISTRIBUTION WIDTH 22.2 % (11.0-15.5); WHITE BLOOD COUNT 7.5 X10e3 (4.0-10.5)
[2017-02-19 16:42] LABS: DIFF IND NO; PLATELET COUNT 17 X10e3 (140-420)
[2017-02-19 16:50] LABS: IRON SERUM 29 ug/dL (28-170); TOTAL IRON BINDING CAPACITY 261 ug/dL (269-535); TRANSFERRIN 186 mg/dL (192-382); TRANSFERRIN SATURATION 11 % (20-50)
[2017-02-19 17:07] LABS: FERRITIN 114 ng/mL (11-307)
[2017-02-20 04:22] LABS: ARTERIAL BLD GAS O2 SATURATION 94.7 % (90.0-100.0); ARTERIAL BLOOD GAS CARBOXY HB 1.2 %sat (0.0-9.0); ARTERIAL BLOOD GAS MET HB 0.9 %sat (0.0-2.0); ARTERIAL BLOOD GAS PCO2 25.1 mmHg (35.0-45.0); ARTERIAL BLOOD GAS pH 7.413 (7.350-7.450)
[2017-02-20 04:40] LABS: ARTERIAL BLOOD GAS ALLEN TEST NORMAL; ARTERIAL BLOOD GAS ART SITE LEFT RADIAL; ARTERIAL BLOOD GAS DELIVERY ROOM AIR; ARTERIAL DRAW? YES
[2017-02-20 05:52] LABS: BASOPHIL% 0.3 % (0-2.5); EOSINOPHIL# 0.1 X10e3 (0-0.7); EOSINOPHIL% 0.8 % (0.0-7.0); HEMATOCRIT 26.5 % (35.0-45.0); HEMOGLOBIN 8.1 gm/dL (12.0-16.0); LYMPHOCYTE# 2.2 X10e3 (1.0-3.5); LYMPHOCYTE% 18.5 % (17.0-45.0); MEAN CORPUSCULAR HEMOGLOBIN 20.5 PG (28-34); MEAN CORPUSCULAR HGB CONC 30.6 g/dL (30-36); MEAN PLATELET VOLUME 10.1 FL (6.5-11.5); MONOCYTE# 0.8 X10e3 (0-1.0); MONOCYTE% 6.8 % (3.0-12.0); NEUTROPHIL# 8.6 X10e3 (1.5-7.1); NEUTROPHIL% 73.6 % (40-75); RED BLOOD COUNT 3.96 X10e (3.90-5.30); RED CELL DISTRIBUTION WIDTH 22.9 % (11.0-15.5)
[2017-02-20 06:00] LABS: WHITE BLOOD COUNT 11.7 X10e3 (4.0-10.5)
[2017-02-20 06:02] LABS: DIFF IND NO; PLATELET COUNT 26 X10e3 (140-420)
[2017-02-20 06:42] LABS: ALBUMIN SERUM 2.2 g/dL (3.5-5.0); BILIRUBIN,TOTAL 2.5 mg/dL (0.2-2.0); CALCIUM SERUM 7.8 mg/dL (8.4-10.2); MAGNESIUM 2.3 mg/dL (1.6-3.0); PHOSPHOROUS 1.1 mg/dL (2.5-4.6); POTASSIUM 3.7 mmol/L (3.5-5.1); PROTEIN TOTAL SERUM 5.5 g/dL (6.0-8.3)
[2017-02-21 04:17] LABS: BASOPHIL# 0.1 X10e3 (0-0.3); BASOPHIL% 0.8 % (0-2.5); EOSINOPHIL# 0.2 X10e3 (0-0.7); EOSINOPHIL% 1.3 % (0.0-7.0); HEMATOCRIT 26.5 % (35.0-45.0); HEMOGLOBIN 8.3 gm/dL (12.0-16.0); LYMPHOCYTE# 3.4 X10e3 (1.0-3.5); LYMPHOCYTE% 25.7 % (17.0-45.0); MEAN CELL VOLUME 66.6 FL (83-96); MEAN CORPUSCULAR HEMOGLOBIN 20.8 PG (28-34); MEAN CORPUSCULAR HGB CONC 31.2 g/dL (30-36); MEAN PLATELET VOLUME 9.5 FL (6.5-11.5); MONOCYTE# 0.7 X10e3 (0-1.0); MONOCYTE% 4.9 % (3.0-12.0); NEUTROPHIL# 8.9 X10e3 (1.5-7.1); NEUTROPHIL% 67.3 % (40-75); RED BLOOD COUNT 3.98 X10e (3.90-5.30); RED CELL DISTRIBUTION WIDTH 22.4 % (11.0-15.5); WHITE BLOOD COUNT 13.3 X10e3 (4.0-10.5)
[2017-02-21 04:23] LABS: DIFF IND YES; PLATELET COUNT 35 X10e3 (140-420)
[2017-02-21 04:25] LABS: INR 1.6
[2017-02-21 04:36] LABS: PLATELET ESTIMATE DECREASED (NORMAL)
[2017-02-21 04:37] LABS: HYPOCHROMIA MOD; POIKILOCYTOSIS SL
[2017-02-21 04:43] LABS: BUN/CREATININE RATIO 27.5; CALCIUM SERUM 7.4 mg/dL (8.4-10.2); CREATININE SERUM 0.8 mg/dL (0.6-1.4); GLOM FILT RATE Estimated 95.6 mL/min (>60); PHOSPHOROUS 1.7 mg/dL (2.5-4.6); POTASSIUM 3.5 mmol/L (3.5-5.1); PROTEIN TOTAL SERUM 5.2 g/dL (6.0-8.3)
[2017-02-21 04:45] LABS: BILIRUBIN,TOTAL 7.4 mg/dL (0.2-2.0)
[2017-02-22 03:33] LABS: BASOPHIL% 0.3 % (0-2.5); EOSINOPHIL# 0.1 X10e3 (0-0.7); EOSINOPHIL% 0.5 % (0.0-7.0); HEMOGLOBIN 7.7 gm/dL (12.0-16.0); LYMPHOCYTE# 3.5 X10e3 (1.0-3.5); MEAN CELL VOLUME 66.3 FL (83-96); MEAN CORPUSCULAR HEMOGLOBIN 20.5 PG (28-34); MEAN PLATELET VOLUME 9.9 FL (6.5-11.5); MONOCYTE# 1.1 X10e3 (0-1.0); MONOCYTE% 7.4 % (3.0-12.0); NEUTROPHIL# 10.4 X10e3 (1.5-7.1); NEUTROPHIL% 68.8 % (40-75); RED BLOOD COUNT 3.76 X10e (3.90-5.30); RED CELL DISTRIBUTION WIDTH 23.2 % (11.0-15.5); WHITE BLOOD COUNT 15.1 X10e3 (4.0-10.5)
[2017-02-22 03:40] LABS: PLATELET COUNT 80 X10e3 (140-420)
[2017-02-22 03:41] LABS: DIFF IND NO
[2017-02-22 03:42] LABS: ALBUMIN SERUM 1.9 g/dL (3.5-5.0); BILIRUBIN,TOTAL 7.8 mg/dL (0.2-2.0); BUN/CREATININE RATIO 22.85; CALCIUM SERUM 7.1 mg/dL (8.4-10.2); CREATININE SERUM 0.7 mg/dL (0.6-1.4); GLOM FILT RATE Estimated 112.3 mL/min (>60); PROTEIN TOTAL SERUM 5.6 g/dL (6.0-8.3)
[2017-02-22 04:29] LABS: ARTERIAL BLD GAS O2 SATURATION 95.4 % (90.0-100.0); ARTERIAL BLOOD GAS CARBOXY HB 1.1 %sat (0.0-9.0); ARTERIAL BLOOD GAS HCO3 14.4 mmol/L; ARTERIAL BLOOD GAS MET HB 0.8 %sat (0.0-2.0); ARTERIAL BLOOD GAS PO2 88.9 mmHg (80.0-100); ARTERIAL BLOOD GAS pH 7.466 (7.350-7.450)
[2017-02-22 04:51] LABS: ARTERIAL BLOOD GAS ALLEN TEST NORMAL; ARTERIAL BLOOD GAS ART SITE LEFT RADIAL; ARTERIAL DRAW? YES
[2017-02-23 05:13] LABS: BASOPHIL% 0.3 % (0-2.5); EOSINOPHIL# 0.1 X10e3 (0-0.7); EOSINOPHIL% 0.4 % (0.0-7.0); HEMATOCRIT 25.6 % (35.0-45.0); LYMPHOCYTE# 2.3 X10e3 (1.0-3.5); LYMPHOCYTE% 14.3 % (17.0-45.0); MEAN CELL VOLUME 66.3 FL (83-96); MEAN CORPUSCULAR HEMOGLOBIN 20.8 PG (28-34); MEAN CORPUSCULAR HGB CONC 31.3 g/dL (30-36); MEAN PLATELET VOLUME 9.3 FL (6.5-11.5); MONOCYTE# 1.1 X10e3 (0-1.0); MONOCYTE% 6.6 % (3.0-12.0); NEUTROPHIL# 12.9 X10e3 (1.5-7.1); NEUTROPHIL% 78.4 % (40-75); PLATELET COUNT 108 X10e3 (140-420); RED BLOOD COUNT 3.86 X10e (3.90-5.30); RED CELL DISTRIBUTION WIDTH 22.9 % (11.0-15.5); WHITE BLOOD COUNT 16.4 X10e3 (4.0-10.5)
[2017-02-23 05:16] LABS: DIFF IND YES
[2017-02-23 05:29] LABS: ARTERIAL BLD GAS O2 SATURATION 95.2 % (90.0-100.0); ARTERIAL BLOOD GAS ALLEN TEST NORMAL; ARTERIAL BLOOD GAS ART SITE LEFT RADIAL; ARTERIAL BLOOD GAS CARBOXY HB 1.5 %sat (0.0-9.0); ARTERIAL BLOOD GAS HCO3 19.5 mmol/L; ARTERIAL BLOOD GAS MET HB 0.9 %sat (0.0-2.0); ARTERIAL BLOOD GAS PO2 66.3 mmHg (80.0-100); ARTERIAL DRAW? YES
[2017-02-23 05:30] LABS: ARTERIAL BLOOD GAS DELIVERY ROOM AIR
[2017-02-23 06:00] LABS: PLATELET ESTIMATE DECREASED (NORMAL); RBC NORMAL YES
[2017-02-23 06:01] LABS: HYPOCHROMIA MOD; POIKILOCYTOSIS SL
[2017-02-23 06:02] LABS: OVALOCYTES PRESENT; POLYCHROMASIA SL; TEAR DROP CELLS PRESENT
[2017-02-23 06:06] LABS: ALBUMIN SERUM 1.9 g/dL (3.5-5.0); BILIRUBIN,TOTAL 7.1 mg/dL (0.2-2.0); BUN/CREATININE RATIO 11.25; CALCIUM SERUM 7.2 mg/dL (8.4-10.2); CREATININE SERUM 0.8 mg/dL (0.6-1.4); GLOM FILT RATE Estimated 95.6 mL/min (>60); MAGNESIUM 1.8 mg/dL (1.6-3.0); POTASSIUM 3.7 mmol/L (3.5-5.1); PROTEIN TOTAL SERUM 5.8 g/dL (6.0-8.3)
[2017-02-24 04:21] LABS: ARTERIAL BLOOD GAS PCO2 29.4 mmHg (35.0-45.0); ARTERIAL BLOOD GAS pH 7.535 (7.350-7.450)
[2017-02-24 04:22] LABS: ARTERIAL BLD GAS O2 SATURATION 95.9 % (90.0-100.0); ARTERIAL BLOOD GAS ALLEN TEST NORMAL; ARTERIAL BLOOD GAS ART SITE LEFT RADIAL; ARTERIAL BLOOD GAS CARBOXY HB 1.8 %sat (0.0-9.0); ARTERIAL BLOOD GAS DELIVERY ROOM AIR; ARTERIAL BLOOD GAS HCO3 24.8 mmol/L; ARTERIAL BLOOD GAS MET HB 0.7 %sat (0.0-2.0); ARTERIAL BLOOD GAS PO2 71.3 mmHg (80.0-100); ARTERIAL DRAW? YES
[2017-02-24 04:25] LABS: BASOPHIL# 0.1 X10e3 (0-0.3); BASOPHIL% 0.3 % (0-2.5); EOSINOPHIL% 0.1 % (0.0-7.0); HEMATOCRIT 23.2 % (35.0-45.0); HEMOGLOBIN 7.2 gm/dL (12.0-16.0); LYMPHOCYTE# 1.8 X10e3 (1.0-3.5); LYMPHOCYTE% 10.3 % (17.0-45.0); MEAN CELL VOLUME 67.4 FL (83-96); MEAN CORPUSCULAR HEMOGLOBIN 21.1 PG (28-34); MEAN CORPUSCULAR HGB CONC 31.2 g/dL (30-36); MEAN PLATELET VOLUME 9.4 FL (6.5-11.5); MONOCYTE# 1.1 X10e3 (0-1.0); MONOCYTE% 6.5 % (3.0-12.0); NEUTROPHIL# 14.4 X10e3 (1.5-7.1); NEUTROPHIL% 82.8 % (40-75); PLATELET COUNT 110 X10e3 (140-420); RED BLOOD COUNT 3.43 X10e (3.90-5.30); RED CELL DISTRIBUTION WIDTH 21.6 % (11.0-15.5); WHITE BLOOD COUNT 17.4 X10e3 (4.0-10.5)
[2017-02-24 04:26] LABS: DIFF IND NO
[2017-02-24 04:48] LABS: ALBUMIN SERUM 1.9 g/dL (3.5-5.0); CALCIUM SERUM 6.9 mg/dL (8.4-10.2); CREATININE SERUM 0.7 mg/dL (0.6-1.4); GLOM FILT RATE Estimated 112.3 mL/min (>60); MAGNESIUM 1.8 mg/dL (1.6-3.0); PROTEIN TOTAL SERUM 5.9 g/dL (6.0-8.3)
[2017-02-24 04:49] LABS: POTASSIUM 2.8 mmol/L (3.5-5.1)
[2017-02-25 07:23] LABS: BASOPHIL% 0.2 % (0-2.5); EOSINOPHIL% 0.1 % (0.0-7.0); HEMATOCRIT 25.2 % (35.0-45.0); HEMOGLOBIN 7.8 gm/dL (12.0-16.0); LYMPHOCYTE# 1.6 X10e3 (1.0-3.5); LYMPHOCYTE% 7.7 % (17.0-45.0); MEAN CORPUSCULAR HEMOGLOBIN 22.2 PG (28-34); MEAN PLATELET VOLUME 9.4 FL (6.5-11.5); MONOCYTE# 1.1 X10e3 (0-1.0); MONOCYTE% 5.4 % (3.0-12.0); NEUTROPHIL# 18.4 X10e3 (1.5-7.1); NEUTROPHIL% 86.6 % (40-75); PLATELET COUNT 112 X10e3 (140-420); RED BLOOD COUNT 3.52 X10e (3.90-5.30); RED CELL DISTRIBUTION WIDTH 23.5 % (11.0-15.5); WHITE BLOOD COUNT 21.3 X10e3 (4.0-10.5)
[2017-02-25 07:30] LABS: DIFF IND YES; MEAN CELL VOLUME 71.7 FL (83-96)
[2017-02-25 07:52] LABS: ALBUMIN SERUM 1.8 g/dL (3.5-5.0); BILIRUBIN,TOTAL 4.8 mg/dL (0.2-2.0); BUN/CREATININE RATIO 8.88; CREATININE SERUM 0.9 mg/dL (0.6-1.4); GLOM FILT RATE Estimated 82.9 mL/min (>60); MAGNESIUM 1.7 mg/dL (1.6-3.0); POTASSIUM 3.1 mmol/L (3.5-5.1)
[2017-02-25 08:21] LABS: HYPOCHROMIA MOD; MICROCYTOSIS MOD; PLATELET ESTIMATE DECREASED (NORMAL)
[2017-02-26 05:51] LABS: HEMATOCRIT 24.4 % (35.0-45.0); HEMOGLOBIN 7.6 gm/dL (12.0-16.0); MEAN CELL VOLUME 72.3 FL (83-96); MEAN CORPUSCULAR HEMOGLOBIN 22.4 PG (28-34); MEAN PLATELET VOLUME 8.9 FL (6.5-11.5); RED BLOOD COUNT 3.38 X10e (3.90-5.30); RED CELL DISTRIBUTION WIDTH 25.2 % (11.0-15.5); WHITE BLOOD COUNT 22.8 X10e3 (4.0-10.5)
[2017-02-26 06:22] LABS: BUN/CREATININE RATIO 12.5; CALCIUM SERUM 7.1 mg/dL (8.4-10.2); CREATININE SERUM 0.8 mg/dL (0.6-1.4); GLOM FILT RATE Estimated 95.6 mL/min (>60); MAGNESIUM 1.8 mg/dL (1.6-3.0); POTASSIUM 3.7 mmol/L (3.5-5.1)
[2017-02-27 07:48] LABS: BUN/CREATININE RATIO 13.33; CALCIUM SERUM 7.9 mg/dL (8.4-10.2); CREATININE SERUM 0.9 mg/dL (0.6-1.4); GLOM FILT RATE Estimated 82.9 mL/min (>60); MAGNESIUM 1.9 mg/dL (1.6-3.0)
[2017-02-27 07:52] LABS: POTASSIUM 5.5 mmol/L (3.5-5.1)
[2017-02-28 06:05] LABS: HEMATOCRIT 24.7 % (35.0-45.0); HEMOGLOBIN 7.6 gm/dL (12.0-16.0); MEAN CELL VOLUME 73.6 FL (83-96); MEAN CORPUSCULAR HEMOGLOBIN 22.6 PG (28-34); MEAN CORPUSCULAR HGB CONC 30.7 g/dL (30-36); MEAN PLATELET VOLUME 9.2 FL (6.5-11.5); RED BLOOD COUNT 3.36 X10e (3.90-5.30); RED CELL DISTRIBUTION WIDTH 29.5 % (11.0-15.5); WHITE BLOOD COUNT 25.4 X10e3 (4.0-10.5)
[2017-02-28 06:33] LABS: ALBUMIN SERUM 1.8 g/dL (3.5-5.0); BILIRUBIN,TOTAL 3.6 mg/dL (0.2-2.0); BUN/CREATININE RATIO 13.33; CALCIUM SERUM 7.6 mg/dL (8.4-10.2); CREATININE SERUM 0.9 mg/dL (0.6-1.4); GLOM FILT RATE Estimated 82.9 mL/min (>60); MAGNESIUM 1.9 mg/dL (1.6-3.0); POTASSIUM 4.2 mmol/L (3.5-5.1); PROTEIN TOTAL SERUM 6.4 g/dL (6.0-8.3)
[2017-03-01 06:40] LABS: HEMATOCRIT 23.9 % (35.0-45.0); HEMOGLOBIN 7.5 gm/dL (12.0-16.0); MEAN CELL VOLUME 73.7 FL (83-96); MEAN CORPUSCULAR HGB CONC 31.2 g/dL (30-36); MEAN PLATELET VOLUME 8.4 FL (6.5-11.5); RED BLOOD COUNT 3.24 X10e (3.90-5.30)
[2017-03-01 07:42] LABS: CALCIUM SERUM 7.8 mg/dL (8.4-10.2); CREATININE SERUM 0.8 mg/dL (0.6-1.4); GLOM FILT RATE Estimated 95.6 mL/min (>60); POTASSIUM 3.6 mmol/L (3.5-5.1)
[2017-03-02 01:45] LABS: HEMATOCRIT 25.1 % (35.0-45.0); HEMOGLOBIN 7.9 gm/dL (12.0-16.0); MEAN CELL VOLUME 74.2 FL (83-96); MEAN CORPUSCULAR HEMOGLOBIN 23.3 PG (28-34); MEAN CORPUSCULAR HGB CONC 31.4 g/dL (30-36); MEAN PLATELET VOLUME 8.7 FL (6.5-11.5); RED BLOOD COUNT 3.39 X10e (3.90-5.30); RED CELL DISTRIBUTION WIDTH 28.7 % (11.0-15.5); WHITE BLOOD COUNT 21.6 X10e3 (4.0-10.5)
[2017-03-03 06:57] LABS: HEMATOCRIT 23.2 % (35.0-45.0); HEMOGLOBIN 7.3 gm/dL (12.0-16.0); MEAN CELL VOLUME 73.3 FL (83-96); MEAN CORPUSCULAR HEMOGLOBIN 22.9 PG (28-34); MEAN CORPUSCULAR HGB CONC 31.3 g/dL (30-36); MEAN PLATELET VOLUME 8.4 FL (6.5-11.5); RED BLOOD COUNT 3.17 X10e (3.90-5.30); RED CELL DISTRIBUTION WIDTH 29.2 % (11.0-15.5); WHITE BLOOD COUNT 24.7 X10e3 (4.0-10.5)
[2017-03-03 07:35] LABS: BUN/CREATININE RATIO 12.66; CALCIUM SERUM 7.7 mg/dL (8.4-10.2); CREATININE SERUM 1.5 mg/dL (0.6-1.4); GLOM FILT RATE Estimated 44.7 mL/min (>60); POTASSIUM 3.2 mmol/L (3.5-5.1)
[2017-03-04 05:55] LABS: HEMATOCRIT 25.2 % (35.0-45.0); MEAN CELL VOLUME 74.8 FL (83-96); MEAN CORPUSCULAR HEMOGLOBIN 23.8 PG (28-34); MEAN CORPUSCULAR HGB CONC 31.8 g/dL (30-36); MEAN PLATELET VOLUME 8.6 FL (6.5-11.5); RED BLOOD COUNT 3.38 X10e (3.90-5.30); RED CELL DISTRIBUTION WIDTH 27.7 % (11.0-15.5); WHITE BLOOD COUNT 11.2 X10e3 (4.0-10.5)
[2017-03-04 06:57] LABS: ALBUMIN SERUM 1.8 g/dL (3.5-5.0); BILIRUBIN,TOTAL 3.6 mg/dL (0.2-2.0); BUN/CREATININE RATIO 16.66; CREATININE SERUM 1.2 mg/dL (0.6-1.4); GLOM FILT RATE Estimated 58.5 mL/min (>60); PROTEIN TOTAL SERUM 6.8 g/dL (6.0-8.3)
[2017-03-04 07:30] LABS: POTASSIUM 2.9 mmol/L (3.5-5.1)
[2017-03-05 03:23] LABS: HEMATOCRIT 24.9 % (35.0-45.0); HEMOGLOBIN 8.1 gm/dL (12.0-16.0); MEAN CELL VOLUME 74.3 FL (83-96); MEAN CORPUSCULAR HEMOGLOBIN 24.1 PG (28-34); MEAN CORPUSCULAR HGB CONC 32.5 g/dL (30-36); MEAN PLATELET VOLUME 8.3 FL (6.5-11.5); RED BLOOD COUNT 3.35 X10e (3.90-5.30); RED CELL DISTRIBUTION WIDTH 27.4 % (11.0-15.5); WHITE BLOOD COUNT 9.5 X10e3 (4.0-10.5)
[2017-03-05 03:44] LABS: BUN/CREATININE RATIO 13.33; CALCIUM SERUM 7.6 mg/dL (8.4-10.2); CREATININE SERUM 1.2 mg/dL (0.6-1.4); GLOM FILT RATE Estimated 58.5 mL/min (>60); MAGNESIUM 1.7 mg/dL (1.6-3.0)
[2017-03-05 03:47] LABS: POTASSIUM 2.9 mmol/L (3.5-5.1)
[2017-03-05 09:58] LABS: ARTERIAL BLOOD GAS pH 7.476 (7.350-7.450)
[2017-03-05 09:59] LABS: ARTERIAL BLD GAS O2 SATURATION 98.9 % (90.0-100.0); ARTERIAL BLOOD GAS ALLEN TEST NORMAL; ARTERIAL BLOOD GAS ART SITE LEFT RADIAL; ARTERIAL BLOOD GAS DELIVERY NASAL CANNULA; ARTERIAL BLOOD GAS HCO3 20.4 mmol/L; ARTERIAL BLOOD GAS MET HB 0.9 %sat (0.0-2.0); ARTERIAL BLOOD GAS PCO2 27.7 mmHg (35.0-45.0); ARTERIAL DRAW? YES
[2017-03-05 10:55] LABS: CK TOTAL 6 IU/L (26-140)
[2017-03-06 06:12] LABS: HEMATOCRIT 26.3 % (35.0-45.0); HEMOGLOBIN 8.4 gm/dL (12.0-16.0); MEAN CELL VOLUME 74.8 FL (83-96); MEAN CORPUSCULAR HEMOGLOBIN 23.9 PG (28-34); MEAN PLATELET VOLUME 8.6 FL (6.5-11.5); RED BLOOD COUNT 3.52 X10e (3.90-5.30); RED CELL DISTRIBUTION WIDTH 27.7 % (11.0-15.5)
[2017-03-06 06:16] LABS: WHITE BLOOD COUNT 14.4 X10e3 (4.0-10.5)
[2017-03-06 06:44] LABS: BUN/CREATININE RATIO 11.66; CALCIUM SERUM 8.1 mg/dL (8.4-10.2); CREATININE SERUM 1.2 mg/dL (0.6-1.4); GLOM FILT RATE Estimated 58.5 mL/min (>60); MAGNESIUM 1.9 mg/dL (1.6-3.0); POTASSIUM 4.1 mmol/L (3.5-5.1)
[2017-03-07 05:59] LABS: HEMATOCRIT 24.7 % (35.0-45.0); MEAN CELL VOLUME 74.7 FL (83-96); MEAN CORPUSCULAR HEMOGLOBIN 24.1 PG (28-34); MEAN CORPUSCULAR HGB CONC 32.3 g/dL (30-36); MEAN PLATELET VOLUME 8.6 FL (6.5-11.5); RED BLOOD COUNT 3.31 X10e (3.90-5.30); RED CELL DISTRIBUTION WIDTH 27.8 % (11.0-15.5); WHITE BLOOD COUNT 10.4 X10e3 (4.0-10.5)
[2017-03-07 06:57] LABS: BUN/CREATININE RATIO 11.81; CALCIUM SERUM 7.7 mg/dL (8.4-10.2); CREATININE SERUM 1.1 mg/dL (0.6-1.4); MAGNESIUM 2.1 mg/dL (1.6-3.0); POTASSIUM 3.5 mmol/L (3.5-5.1)
[2017-03-09 08:06] LABS: HEMOGLOBIN 7.1 gm/dL (12.0-16.0); MEAN CELL VOLUME 75.3 FL (83-96); MEAN CORPUSCULAR HEMOGLOBIN 24.4 PG (28-34); MEAN CORPUSCULAR HGB CONC 32.3 g/dL (30-36); MEAN PLATELET VOLUME 8.9 FL (6.5-11.5); RED BLOOD COUNT 2.93 X10e (3.90-5.30); RED CELL DISTRIBUTION WIDTH 28.7 % (11.0-15.5); WHITE BLOOD COUNT 5.8 X10e3 (4.0-10.5)
[2017-03-09 08:25] LABS: BUN/CREATININE RATIO 15.55; CALCIUM SERUM 7.8 mg/dL (8.4-10.2); CREATININE SERUM 0.9 mg/dL (0.6-1.4); GLOM FILT RATE Estimated 82.9 mL/min (>60); MAGNESIUM 1.8 mg/dL (1.6-3.0); POTASSIUM 4.5 mmol/L (3.5-5.1)
[2017-03-09 15:21] LABS: HEMATOCRIT 22.1 % (35.0-45.0); HEMOGLOBIN 7.2 gm/dL (12.0-16.0)
[2017-03-10 05:05] LABS: HEMATOCRIT 22.5 % (35.0-45.0); HEMOGLOBIN 7.2 gm/dL (12.0-16.0); MEAN CELL VOLUME 75.9 FL (83-96); MEAN CORPUSCULAR HEMOGLOBIN 24.4 PG (28-34); MEAN CORPUSCULAR HGB CONC 32.1 g/dL (30-36); MEAN PLATELET VOLUME 8.7 FL (6.5-11.5); RED BLOOD COUNT 2.96 X10e (3.90-5.30); RED CELL DISTRIBUTION WIDTH 28.4 % (11.0-15.5); WHITE BLOOD COUNT 6.4 X10e3 (4.0-10.5)
[2017-03-10 06:45] LABS: BUN/CREATININE RATIO 15.55; CALCIUM SERUM 8.1 mg/dL (8.4-10.2); CREATININE SERUM 0.9 mg/dL (0.6-1.4); GLOM FILT RATE Estimated 82.9 mL/min (>60); POTASSIUM 4.3 mmol/L (3.5-5.1)
[2017-03-12 05:30] LABS: HEMATOCRIT 27.6 % (35.0-45.0); MEAN CELL VOLUME 75.9 FL (83-96); MEAN CORPUSCULAR HEMOGLOBIN 24.8 PG (28-34); MEAN CORPUSCULAR HGB CONC 32.7 g/dL (30-36); MEAN PLATELET VOLUME 8.5 FL (6.5-11.5); RED BLOOD COUNT 3.63 X10e (3.90-5.30); RED CELL DISTRIBUTION WIDTH 27.5 % (11.0-15.5); WHITE BLOOD COUNT 9.6 X10e3 (4.0-10.5)
[2017-03-12 05:43] LABS: MAGNESIUM 1.8 mg/dL (1.6-3.0); POTASSIUM 3.4 mmol/L (3.5-5.1)
[2017-03-13 12:19] LABS: MAGNESIUM 1.8 mg/dL (1.6-3.0); POTASSIUM 3.4 mmol/L (3.5-5.1)
[2017-03-14 06:59] LABS: BASOPHIL# 0.1 X10e3 (0-0.3); EOSINOPHIL# 0.2 X10e3 (0-0.7); EOSINOPHIL% 2.3 % (0.0-7.0); HEMATOCRIT 26.6 % (35.0-45.0); HEMOGLOBIN 8.6 gm/dL (12.0-16.0); LYMPHOCYTE# 1.4 X10e3 (1.0-3.5); LYMPHOCYTE% 20.5 % (17.0-45.0); MEAN CELL VOLUME 76.6 FL (83-96); MEAN CORPUSCULAR HEMOGLOBIN 24.9 PG (28-34); MEAN CORPUSCULAR HGB CONC 32.5 g/dL (30-36); MEAN PLATELET VOLUME 8.5 FL (6.5-11.5); MONOCYTE# 1.5 X10e3 (0-1.0); MONOCYTE% 22.3 % (3.0-12.0); NEUTROPHIL# 3.7 X10e3 (1.5-7.1); NEUTROPHIL% 53.9 % (40-75); PLATELET COUNT 233 X10e3 (140-420); RED BLOOD COUNT 3.47 X10e (3.90-5.30); RED CELL DISTRIBUTION WIDTH 27.8 % (11.0-15.5); WHITE BLOOD COUNT 6.8 X10e3 (4.0-10.5)
[2017-03-14 07:02] LABS: DIFF IND YES
[2017-03-14 07:37] LABS: BILIRUBIN,TOTAL 2.3 mg/dL (0.2-2.0); CALCIUM SERUM 8.3 mg/dL (8.4-10.2); CREATININE SERUM 0.8 mg/dL (0.6-1.4); GLOM FILT RATE Estimated 95.6 mL/min (>60); MAGNESIUM 2.2 mg/dL (1.6-3.0); POTASSIUM 3.8 mmol/L (3.5-5.1); PROTEIN TOTAL SERUM 6.8 g/dL (6.0-8.3)
[2017-03-14 08:04] LABS: HYPOCHROMIA SL; PLATELET ESTIMATE NORMAL (NORMAL); POLYCHROMASIA SL
[2017-03-14 08:05] LABS: SCHISTOCYTES PRESENT
[2017-03-15 05:29] LABS: BASOPHIL# 0.1 X10e3 (0-0.3); BASOPHIL% 1.4 % (0-2.5); EOSINOPHIL# 0.1 X10e3 (0-0.7); EOSINOPHIL% 1.1 % (0.0-7.0); HEMATOCRIT 26.5 % (35.0-45.0); HEMOGLOBIN 8.6 gm/dL (12.0-16.0); LYMPHOCYTE% 26.1 % (17.0-45.0); MEAN CELL VOLUME 76.5 FL (83-96); MEAN CORPUSCULAR HEMOGLOBIN 24.9 PG (28-34); MEAN CORPUSCULAR HGB CONC 32.5 g/dL (30-36); MONOCYTE# 2.1 X10e3 (0-1.0); MONOCYTE% 27.6 % (3.0-12.0); NEUTROPHIL# 3.4 X10e3 (1.5-7.1); NEUTROPHIL% 43.8 % (40-75); PLATELET COUNT 243 X10e3 (140-420); RED BLOOD COUNT 3.46 X10e (3.90-5.30); RED CELL DISTRIBUTION WIDTH 28.4 % (11.0-15.5); WHITE BLOOD COUNT 7.8 X10e3 (4.0-10.5)
[2017-03-15 05:30] LABS: DIFF IND NO
[2017-03-15 06:18] LABS: ALBUMIN SERUM 2.1 g/dL (3.5-5.0); BILIRUBIN,TOTAL 2.5 mg/dL (0.2-2.0); BUN/CREATININE RATIO 14.44; CALCIUM SERUM 8.5 mg/dL (8.4-10.2); CREATININE SERUM 0.9 mg/dL (0.6-1.4); GLOM FILT RATE Estimated 82.9 mL/min (>60); POTASSIUM 3.7 mmol/L (3.5-5.1); PROTEIN TOTAL SERUM 6.9 g/dL (6.0-8.3)
== END 2017-03-15 16:47 | DRG 871 ==
LOC: CED 11:05 → CEDOF 13:00 → CICCU2 13:00 → CED 13:12 → CEDOF 13:12 → CICCU2 15:29 → CEDOF 15:29 → C5C 02-24 16:43 → C4C 03-13 10:35 → C2A 03-13 16:05
PROVIDERS: Emergency Medicine; Hospitalist; Internal Medicine; Internal Medicine Cardiovascular Disease; Internal Medicine Hematology; Internal Medicine Hematology & Oncology; Nurse Practitioner Family; Physician Assistant Medical
PROC: 6A551Z2 Pheresis of Platelets, Multiple (ICD-10-PCS; 2017-02-19)
PROC: B24BZZ4 Ultrasonography of Heart with Aorta, Transesophageal (ICD-10-PCS; principal; 2017-02-22)
PROC: 02H633Z Insertion of Infusion Device into Right Atrium, Percutaneous Approach (ICD-10-PCS; 2017-03-03)
PROC: B214YZZ Fluoroscopy of Right Heart using Other Contrast (ICD-10-PCS; 2017-03-03)
PROC: B244YZZ Ultrasonography of Right Heart using Other Contrast (ICD-10-PCS; 2017-03-03)
DX: A41.01 Sepsis due to Methicillin susceptible Staphylococcus aureus (principal); I50.33 Acute on chronic diastolic (congestive) heart failure; J96.00 Acute respiratory failure, unspecified whether with hypoxia or hypercapnia; R65.21 Severe sepsis with septic shock; E87.2 Acidosis; I33.0 Acute and subacute infective endocarditis; E87.3 Alkalosis; D69.6 Thrombocytopenia, unspecified; E87.1 Hypo-osmolality and hyponatremia; N39.0 Urinary tract infection, site not specified; F19.239 Other psychoactive substance dependence with withdrawal, unspecified; I47.1 Supraventricular tachycardia; Z88.2 Allergy status to sulfonamides; Z79.01 Long term (current) use of anticoagulants; Z95.2 Presence of prosthetic heart valve; Z95.0 Presence of cardiac pacemaker; F17.210 Nicotine dependence, cigarettes, uncomplicated; E11.9 Type 2 diabetes mellitus without complications; Z79.4 Long term (current) use of insulin; N28.9 Disorder of kidney and ureter, unspecified; R19.7 Diarrhea, unspecified; R11.2 Nausea with vomiting, unspecified; J44.9 Chronic obstructive pulmonary disease, unspecified; I11.0 Hypertensive heart disease with heart failure; D50.9 Iron deficiency anemia, unspecified; E87.6 Hypokalemia; B95.61 Methicillin susceptible Staphylococcus aureus infection as the cause of diseases classified elsewhere; I07.0 Rheumatic tricuspid stenosis; D72.829 Elevated white blood cell count, unspecified; E83.42 Hypomagnesemia; I51.89 Other ill-defined heart diseases
CPT/HCPCS: 36415; 36600; 71010; 71250; 74176; 76937; 77001; 80048; 80053; 80076; 80170; 80307; 81003; 82274; 82308; 82550; 82607; 82728; 82803; 82947; 83540; 83550; 83605; 83690; 83735; 83880; 83930; 83935; 84100; 84132; 84300; 84443; 84484; 85014; 85018; 85025; 85027; 85610; 85730; 86850; 86900; 86901; 86923; 87040; 87077; 87086; 87186; 87493; 87806; 89190; 93005; 93306; 93312; 93971; 96361; 96374; 97110; 97116; 97161; 97163; 97166; 97530; 97535; 99291; C1750; C1751; J0690; J1200; J1580; J1630; J1652; J1815; J1940; J2060; J2250; J2405; J2543; J2550; J2916; J3010; J3370; J3475; J7060; P9016; P9035; P9037

== ENCOUNTER 2017-03-24 16:38 | Emergency (ER) | payer OTHER ==
[~2017-03-24 16:38] MED LIST changes: +COUMADIN10 MG PO; +KLONOPIN PO; +ROXICODONE30 M1 PO
== END 2017-03-24 18:42 | disposition home or self-care (01) ==
LOC: CED 16:38
DX: Z45.2 Encounter for adjustment and management of vascular access device (principal); F17.210 Nicotine dependence, cigarettes, uncomplicated; Z88.5 Allergy status to narcotic agent; Z91.013 Allergy to seafood; Z79.01 Long term (current) use of anticoagulants
CPT/HCPCS: 99283